=== PATIENT | male | born 1995 | race Caucasian/White ===

== ENCOUNTER 2018-01-26 16:49 | Outpatient (CLI) | payer SELFPAY ==
[2018-01-28 10:52] LABS: HBs Antibody, Quant <3.1 mIU/mL; Hepatitis B Surface Ab Negative
[2018-01-28 12:35] LABS: Varicella IgG Antibody Positive
[2018-01-28 12:44] LABS: Measles IgG Antibody Positive; Mumps Antibody IgG Positive; Rubella IgG Ab (UVM) Positive
[2018-01-28 14:44] LABS: TB Interpretation Negative (NEGAT)
== END 2018-01-26 17:09 ==
PROVIDERS: Visit Provider Nurse Practitioner Family
DX: Z02.1 Encounter for pre-employment examination (principal); Z01.84 Encounter for antibody response examination
CPT/HCPCS: 36415; 86706; 86787; 86480; 86735; 86762; 86765

== ENCOUNTER 2018-08-19 18:15 | Emergency (ER) | payer SELFPAY ==
[2018-08-19 18:20] VITALS: BP 158/91; PULSE 84; RESP 14; TEMP 36.4; O2SAT 96
--- NOTE | 2018-08-19 18:43 | W.ED.GENAD ---
Discharge Plan Disposition Patient Disposition: HOME Condition: Improving Discharge Details Chief Complaint: Nk/Back Pain Clinical Impression: Acute left-sided thoracic back pain Primary Care Provider: None,None ED Provider: Dylan Fuentes Home Meds and New Rx's Prescriptions: New methocarbamol 500 mg tablet 500 - 1,000 mg PO Q6H PRN (Reason: Back pain or spasm) Qty: 14 RF: 0 Continued acetaminophen [Tylenol] 325 MG tablet 325 mg PO PRN PRNRF: 0 melatonin 5 MG capsule 10 mg PO HS RF: 0 Ibuprofen [Ibuprofen Ib] 200 MG Tablet 600 mg PO PRN PRNRF: 0 Discharge Instructions Instructions: Back Pain (ED) Additional Instructions: Remove Lidoderm patch in 12 hours. Take methocarbamol, as prescribed, as needed for pain. As we discussed, please return if you develop a fever, change to urine, worsening pain, or any other acute concerns. Medical Decision Making 23-year-old male presents with left-sided thoracic pain over 3 days time. It began after lifting his girlfriend while swimming. He has not had any other injury. No rash, no fever, no cough. No leg pain or swelling. No recent travel or prolonged immobilization. He is afebrile, pulse is 84, oxygenation 96%, mild hypertension at 158/91 with pain. He is tender along the paraspinous thoracic musculature with spasm underlying it. This is the most likely etiology. Discussed with him that I cannot rule out underlying pathology such as kidney stone, bowel obstruction, or other pathologies. He states he wishes to avoid blood draw and imaging at this time. Therefore, we he will administer a Lidoderm patch, which he will remove in 12 hours, we will trial methocarbamol for discomfort. He understands the need to return to the pain worsen, rash develop, fever develop, change to urine, or any other acute concerns. HPI General Mode of arrival: ambulatory. Date/Time Provider Initiated Documentation: 08/19/18 18:17. Limitations to Documentation: no limitations. Information obtained by: patient. History of Present Illness 23 year old M presents to the emergency department with the chief complaint of Left thoracic pain x3 days, described as moderate, Quality is described as dull and constant, and is localized to the back and left. Patient reports no radiation. Patient started experiencing this day(s) and it has been intermittent. other things that improve symptom(s), (Standing up) Other factors that worsen symptoms (Sitting down) . Patient notes no other symptoms. and other (No change to urine, no fall, no trauma, no fever). Patient did receive the following treatments prior to arrival, none Related Data Home Medications Medication Instructions Recorded Confirmed acetaminophen [Tylenol] 325 mg PO PRN PRN 09/01/12 08/19/18 Ibuprofen [Ibuprofen Ib] 600 mg PO PRN PRN 03/13/17 08/19/18 melatonin 10 mg PO HS 03/13/17 08/19/18 methocarbamol 500 - 1,000 mg PO Q6H PRN #14 tab 08/19/18 Previous Rx's Medication Instructions Recorded methocarbamol 500 - 1,000 mg PO Q6H PRN #14 tab 08/19/18 Allergies Allergy/AdvReac Type Severity Reaction Status Date / Time pollen Allergy Mild sneezes Uncoded 08/19/18 18:22 General Stated Complaint: Nk/Back Pain SHAHIDA: 4 Review of Systems Review of Systems Began after lifting girlfriend while swimming. No rash, no fever, no chest pain, no cough. 8 systems reviewed and otherwise - [facility] Social History Smoking/Tobacco Use Status: Current every day Tobacco Type: cigarettes Drug use: Current Sobriety Do you feel safe at home: Yes Do you feel safe in your relationship?: Yes Exam Narrative Exam Narrative: GEN: awake, alert, oriented 3. Pleasant, well groomed, interactive. HEAD: Normocephalic, atraumatic ENT: Mucous membranes moist, oropharynx unremarkable, External ear exam unremarkable EYES: PERRL, EOMI NECK: Full ROM, no CLARENCE, no menigismus CHEST/RESP: Nontender, clear to auscultation bilateral, no wheeze/rhonchi/rales CARDIOVASCULAR: RRR, no murmur, rub yaneth. 2+ Rad pulse bilateral ABDOMEN: Soft, nontender, no mass. +Bowel sounds Back: Left paraspinous thoracic musculature is tender and with underlying spasm. No rash appreciated EXT: Full ROM, no edema, no rash Neuro: Grossly normal neurologic exam, conversant, interactive. Psych: Speech fluent, thoughts congruent, affect normal Course Vital Signs Temperature 36.4 C L 08/19/18 18:20 Pulse 84 08/19/18 18:20 Respiratory Rate 14 08/19/18 18:20 Blood Pressure 158/91 H 08/19/18 18:20 Pulse Oximetry 96 08/19/18 18:20 Temperature 36.4 C L 08/19/18 18:20 Temperature Source Temporal Artery Scan 08/19/18 18:20 Pulse 84 08/19/18 18:20 Respiratory Rate 14 08/19/18 18:20 Respiratory Effort Non-Labored 08/19/18 18:21 Blood Pressure 158/91 H 08/19/18 18:20 Blood Pressure Position Sitting 08/19/18 18:20 Pulse Oximetry 96 08/19/18 18:20 Oxygen Delivery Method Room Air 08/19/18 18:20 Oxygen Flow Rate 0 08/19/18 18:20 Pain Level 8 08/19/18 18:20
--- NOTE | 2018-08-19 18:47 | ED.GENADUL_ITS ---
Discharge Plan Disposition Patient Disposition: HOME Condition: Improving Discharge Details Chief Complaint: Nk/Back Pain Clinical Impression: Acute left-sided thoracic back pain Primary Care Provider: None,None ED Provider: Dylan Fuentes Home Meds and New Rx's Prescriptions: New methocarbamol 500 mg tablet 500 - 1,000 mg PO Q6H PRN (Reason: Back pain or spasm) Qty: 14 RF: 0 Continued acetaminophen [Tylenol] 325 MG tablet 325 mg PO PRN PRNRF: 0 melatonin 5 MG capsule 10 mg PO HS RF: 0 Ibuprofen [Ibuprofen Ib] 200 MG Tablet 600 mg PO PRN PRNRF: 0 Discharge Instructions Instructions: Back Pain (ED) Additional Instructions: Remove Lidoderm patch in 12 hours. Take methocarbamol, as prescribed, as needed for pain. As we discussed, please return if you develop a fever, change to urine, worsening pain, or any other acute concerns. Medical Decision Making 23-year-old male presents with left-sided thoracic pain over 3 days time. It began after lifting his girlfriend while swimming. He has not had any other injury. No rash, no fever, no cough. No leg pain or swelling. No recent travel or prolonged immobilization. He is afebrile, pulse is 84, oxygenation 96%, mild hypertension at 158/91 with pain. He is tender along the paraspinous thoracic musculature with spasm underlying it. This is the most likely etiology. Discussed with him that I cannot rule out underlying pathology such as kidney stone, bowel obstruction, or other pathologies. He states he wishes to avoid blood draw and imaging at this time. Therefore, we he will administer a Lidoderm patch, which he will remove in 12 hours, we will trial methocarbamol for discomfort. He understands the need to return to the pain worsen, rash develop, fever develop, change to urine, or any other acute concerns. HPI General Mode of arrival: ambulatory . Date/Time Provider Initiated Documentation: 08/19/18 18:17 . Limitations to Documentation: no limitations . Information obtained by: patient . History of Present Illness 23 year old M presents to the emergency department with the chief complaint of Left thoracic pain x3 days, described as moderate, Quality is described as dull and constant, and is localized to the back and left. Patient reports no radiation. Patient started experiencing this day(s) and it has been intermittent. other things that improve symptom(s), (Standing up) Other factors that worsen symptoms (Sitting down) . Patient notes no other symptoms. and other (No change to urine, no fall, no trauma, no fever). Patient did receive the following treatments prior to arrival, none Related Data Home Medications Medication Instructions Recorded Confirmed acetaminophen [Tylenol] 325 mg PO PRN PRN 09/01/12 08/19/18 Ibuprofen [Ibuprofen Ib] 600 mg PO PRN PRN 03/13/17 08/19/18 melatonin 10 mg PO HS 03/13/17 08/19/18 methocarbamol 500 - 1,000 mg PO Q6H PRN #14 tab 08/19/18 Previous Rx's Medication Instructions Recorded methocarbamol 500 - 1,000 mg PO Q6H PRN #14 tab 08/19/18 Allergies Allergy/AdvReac Type Severity Reaction Status Date / Time pollen Allergy Mild sneezes Uncoded 08/19/18 18:22 General Stated Complaint: Nk/Back Pain SHAHIDA: 4 Review of Systems Review of Systems Began after lifting girlfriend while swimming. No rash, no fever, no chest pain, no cough. 8 systems reviewed and otherwise - [facility] Social History Smoking/Tobacco Use Status: Current every day Tobacco Type: cigarettes Drug use: Current Sobriety Do you feel safe at home: Yes Do you feel safe in your relationship?: Yes Exam Narrative Exam Narrative: GEN: awake, alert, oriented 3. Pleasant, well groomed, interactive. HEAD: Normocephalic, atraumatic ENT: Mucous membranes moist, oropharynx unremarkable, External ear exam unremarkable EYES: PERRL, EOMI NECK: Full ROM, no CLARENCE, no menigismus CHEST/RESP: Nontender, clear to auscultation bilateral, no wheeze/rhonchi/rales CARDIOVASCULAR: RRR, no murmur, rub yaneth. 2+ Rad pulse bilateral ABDOMEN: Soft, nontender, no mass. +Bowel sounds Back: Left paraspinous thoracic musculature is tender and with underlying spasm. No rash appreciated EXT: Full ROM, no edema, no rash Neuro: Grossly normal neurologic exam, conversant, interactive. Psych: Speech fluent, thoughts congruent, affect normal Course Vital Signs Temperature 36.4 C L 08/19/18 18:20 Pulse 84 08/19/18 18:20 Respiratory Rate 14 08/19/18 18:20 Blood Pressure 158/91 H 08/19/18 18:20 Pulse Oximetry 96 08/19/18 18:20 Temperature 36.4 C L 08/19/18 18:20 Temperature Source Temporal Artery Scan 08/19/18 18:20 Pulse 84 08/19/18 18:20 Respiratory Rate 14 08/19/18 18:20 Respiratory Effort Non-Labored 08/19/18 18:21 Blood Pressure 158/91 H 08/19/18 18:20 Blood Pressure Position Sitting 08/19/18 18:20 Pulse Oximetry 96 08/19/18 18:20 Oxygen Delivery Method Room Air 08/19/18 18:20 Oxygen Flow Rate 0 08/19/18 18:20 Pain Level 8 08/19/18 18:20
[2018-08-19] MEDS: Lidocaine 5% Patch 1 PATCH TP (18:59)
[2018-08-19] MEDS: Methocarbamol 500 MG TAB 1000 MG PO (19:00)
[2018-08-19] MEDS: Methocarbamol 500 MG TAB 2000 MG PO (19:02)
== END 2018-08-19 19:11 | disposition home or self-care (01) ==
PROVIDERS: Emergency Provider Emergency Medicine
DX: M54.6 Pain in thoracic spine (principal); X50.9XXA Other and unspecified overexertion or strenuous movements or postures, initial encounter; I10 Essential (primary) hypertension
CPT/HCPCS: 99283

== ENCOUNTER 2018-11-22 14:18 | Emergency (ER) | payer SELFPAY ==
[2018-11-22 14:21] VITALS: BP 120/83; PULSE 81; RESP 16; TEMP 36.7; O2SAT 97
[2018-11-22 14:27] VITALS: RESP 16
--- NOTE | 2018-11-22 14:31 | ED.GENADUL_ITS ---
Discharge Plan Disposition Patient Disposition: HOME Condition: Good Discharge Details Chief Complaint: Chest Pain Clinical Impression: Atypical chest pain, Stress Primary Care Provider: None,None ED Provider: Jacquie Casillas Home Meds and New Rx's Prescriptions: Continued acetaminophen [Tylenol] 325 MG tablet 325 mg PO PRN PRNRF: 0 Ibuprofen [Ibuprofen Ib] 200 MG Tablet 600 mg PO PRN PRNRF: 0 Discharge Instructions Instructions: Stress (ED) Additional Instructions: Encourage hydration. Your labs and x-ray are reassuring today. We are working on establishing a primary care for you, if you do not hear from us by Friday, please call the care coordinators. Please recheck to [facility] regarding counseling. If you have any increased anxiety or worry feel free to call them at any time or the [place] helpline. [phone]. Please call [facility] [employer] tomorrow to discuss any financial assistance that may be available to you. If you develop any new or worsening symptoms please seek care urgently once again. Medical Decision Making Please see HPI. Patient is a 23-year-old male presents today with chief complaint of chest pain x1 week worse with immobilization. Reports that pain is worse during times of increased stress. Denies any shortness of breath. No cough. He is an active smoker. Patient does not have a primary care. He reports that he is currently homeless and is running out of couches to stay on. However, he has been hesitant to reach out for housing assistance as he has a large dog and will not accept housing if the dog is not able to stay with him. Patient denies any palpitations. On exam, patient appears anxious. He does not appear uncomfortable. Reports he is not having any pain currently despite his immobilized state which typically exacerbates his issues. Normal cardiac exam. Peripheral pulses are intact. Lungs are clear bilaterally. No swelling noted in lower extremities, calves are soft and nontender, no evidence of DVT. Vital signs are within normal limits. Patient's PERC negative. Do not appreciate any murmur on exam. He denies any IV drug use. However, with his history of murmur and concern of fever over the recent setting, endocarditis is on the differential. Will obtain chest x-ray, EKG and baseline labs as well as blood cultures. I do find this unlikely as the fevers have not persisted, patient does not have a current murmur and is not an IV drug user. Discussed this plan with the patient who is in agreement. EKG was reviewed by Dr. Medina. Patient has normal sinus rhythm with a rate of 73. No acute ischemic changes or abnormalities noted. Chest x-ray was reviewed by radiologist: FINDINGS: Heart is not enlarged. The lungs are clear. No pleural effusion seen. IMPRESSION: No evidence of acute process. Labs reviewed. No leukocytosis. Normal lactate. Troponin is not elevated. Normal electrolytes. Discussed these findings with the patient and his significant other. As the symptoms seem to generate around times of being sedentary and self reflection, this is likely stress-induced discomfort. He does not have a primary care and I would like for him to have follow-up, asked her out of school hours care worker help facilitate with this. As the patient is actively homeless and struggling financially, I have asked the out of school hours care worker, and check with the patient. He is not suicidal or homicidal but would like the care of a counselor. I have given him contact information for [facility] human services. He was given strict return precautions. All of his questions and concerns were addressed and he is in agreement with this plan. HPI General Mode of arrival: ambulatory . Date/Time Provider Initiated Documentation: 11/22/18 14:30 . Limitations to Documentation: no limitations . Information obtained by: patient and family (Significant other) . HPI Narrative: Patient is a 23-year-old male, currently under a large amount of stress secondary to lifestyle situations, presenting today with chief complaint of chest pain. Reports the pain has been intermittent, only at times of rest, over the past week. States that he did have a low-grade fever with a T-max of 100 ?F 3 days ago. Has not had any fever since that time. Denies any URI symptoms. Is also endorsing some left-sided shoulder pain that is worse with movement. Reports that he has a very repetitive job and cannot can occasionally have some tingling in the left hand. Currently not having the symptoms. Denies any recent travel. Denies any GI upset. No recent rash. He does report that he has a history of murmur from a child but believes that this was resolved. Unclear etiology of the murmur. Denies any exertional chest pain. No shortness of breath. Pain is not worse with deep breathing or activities. Related Data Home Medications Medication Instructions Recorded Confirmed acetaminophen [Tylenol] 325 mg PO PRN PRN 09/01/12 11/22/18 Ibuprofen [Ibuprofen Ib] 600 mg PO PRN PRN 03/13/17 11/22/18 Allergies Allergy/AdvReac Type Severity Reaction Status Date / Time pollen Allergy Mild sneezes Uncoded 08/19/18 18:22 General Stated Complaint: Chest Pain SHAHIDA: 3 Review of Systems Constitutional Constitutional: Reports as per HPI, Denies chills, Denies fever(s), Denies headache(s), Denies lethargy and Denies poor appetite Eyes Eyes: Denies change in vision ENT Ears, Nose, Mouth, and Throat: Denies dizziness and Denies headache(s) Cardiovascular Cardiovascular: Reports as per HPI, Denies dyspnea and Denies dyspnea on exertion Respiratory Respiratory: Reports as per HPI, Denies chest congestion, Denies cough, Denies pain on inspiration, Denies pain with cough, Denies dyspnea, Denies dyspnea on exertion and Denies wheezing Gastrointestinal Gastrointestinal: Reports as per HPI, Denies abdominal pain, Denies diarrhea, Denies nausea and Denies vomiting Genitourinary Genitourinary: Denies system reviewed and no additional complaints, except as docu (denies change in urinary habits) Musculoskeletal Musculoskeletal: Reports as per HPI and Denies back pain Integumentary/Breasts Skin/Breast: Reports as per HPI and Denies rash Neurologic Neurologic: Reports as per HPI, Denies dizziness and Denies headache(s) Allergic/Immunologic Allergic/Immunologic: Denies wheezing [facility] Social History Smoking/Tobacco Use Status: Current every day Tobacco Type: cigarettes Drug use: Current Sobriety Do you feel safe at home: Yes Do you feel safe in your relationship?: Yes Exam Const General: cooperative, healthy appearing, comfortable, no acute distress and well developed Nutritional Appearance: average body habitus and well nourished Orientation: alert, awake and oriented x3 HENMT Head: normal to inspection Ears: hearing grossly normal bilaterally Mouth: moist mucous membranes Chest Chest: normal inspection of the chest, normal palpation of entire chest wall and no crepitus Resp Effort & Inspection: normal respiratory effort, able to speak in complete sentences and no respiratory distress Auscultation: clear to auscultation bilaterally, no rales, no rhonchi and no wheezes Cardio Rate: regular rate Rhythm: regular rhythm Heart Sounds: S1 normal and S2 normal GI Inspection: normal to inspection, no edema and non-distended Palpation: soft, no hepatosplenomegaly, not firm, no guarding, not rigid and nontender Auscultation: normal bowel sounds Back/Spine/Pelvis Back: no CVA tenderness Thoracic/Lumbar Spine: thoracic and lumbar spine normal to inspection Skin General skin exam: no rashes or lesions noted Trauma: no lacerations or abrasions Neuro General: alert, awake and oriented x3 Cognition: normal cognition Speech: speech normal Gait: normal gait Extrem General: normal to inspection, normal capillary refill, no pedal edema, no calf tenderness and normal gait Psych Appearance: grossly normal and well kempt Mental Status: mental status grossly normal Speech and Movement: speech and movement normal Course Vital Signs Vital signs: Vital Signs Temperature 36.7 C 11/22/18 14:21 Pulse 81 11/22/18 14:21 Respiratory Rate 16 11/22/18 14:21 Blood Pressure 120/83 11/22/18 14:21 Pulse Oximetry 97 11/22/18 14:21 Temperature 36.7 C 11/22/18 14:21 Temperature Source Temporal Artery Scan 11/22/18 14:21 Pulse 81 11/22/18 14:21 Respiratory Rate 16 11/22/18 14:21 Blood Pressure 120/83 11/22/18 14:21 Blood Pressure Position Sitting 11/22/18 14:21 Pulse Oximetry 97 11/22/18 14:21 Oxygen Delivery Method Room Air 11/22/18 14:21 Oxygen Flow Rate 0 11/22/18 14:21 Pain Level 6 11/22/18 14:21
--- NOTE | 2018-11-22 14:45 | DI.RAD_ITS ---
EXAM: XR CHEST 2V PA LATERAL INDICATION: CP. COMPARISON: LEFT RIBS TO INCLUDE CXR from 01/09/2012 TECHNIQUE: 2D digital imaging was performed. FINDINGS: Heart is not enlarged. The lungs are clear. No pleural effusion seen. IMPRESSION: No evidence of acute process.
[2018-11-22] MEDS: Normal Saline Flush 10 ML SYR IVP (15:08)
[2018-11-22] MEDS: Normal Saline 1,000 ML 1000 ML IV (15:08)
[2018-11-22 15:10] LABS: Lactate 1.3 mmol/L (0.6-1.4)
[2018-11-22 15:19] LABS: Abs Immature Grans 0.01 k/cumm (0.0-0.09); HCT 47.8 % (40.0-50.0); Mean Corp. HGB Concentration 35.6 g/dL (32.0-36.0); Mean Corpuscular Hemoglobin 29.5 pg (27.0-33.0); Mean Corpuscular Volume 82.8 fL (80-95); Mean Platelet Volume 10.2 fL (8.0-11.0); Platelet Count 242 x1000/uL (130-400); RBC 5.77 m/cumm (4.50-6.00); RBC Distribution Width 12.7 % (11.8-14.1); White Blood Cell Count 6.67 k/cumm (4.4-10.8)
[2018-11-22] MEDS: Nicotine 21 MG/24 HR PATCH TD (15:25)
[2018-11-22 15:33] LABS: ALT 20 U/L (16-63); AST 14 U/L (15-37); Albumin 3.9 g/dL (3.4-5.0); Alkaline Phosphatase 75 U/L (46-116); Anion Gap 9.4 mmol/L (3-11); BUN 14 mg/dL (7-18); Bilirubin, Total 1.2 mg/dL (0.2-1.0); CO2 28.6 mmol/L (21.0-32.0); CREATININE 0.93 mg/dL (0.70-1.30); Calcium 8.9 mg/dL (8.5-10.1); Chloride 104 mmol/L (98-107); Glucose 103 mg/dL (70-100); Magnesium 1.9 mg/dL (1.8-2.4); Potassium 3.9 mmol/L (3.5-5.1); Sodium 142 mmol/L (136-145); Total Protein 7.8 g/dL (6.4-8.2)
[2018-11-22 15:35] LABS: Troponin I < 0.05 ng/mL (0.00-0.06)
[2018-11-22 15:47] LABS: Absolute Basophil Count 0.07 k/cumm (0.0-0.2); Absolute Eosinophil Count 0.07 k/cumm (0.0-0.7); Absolute Lymphocyte Count 1.93 k/cumm (1.2-3.4); Atypical Lymphocytes % 8
[2018-11-22 15:48] LABS: Diff Comment Manual Differential; RBC Morphology Normal
[2018-11-22 17:10] VITALS: BP 119/80; PULSE 64; RESP 16; O2SAT 95
== END 2018-11-22 17:18 | disposition home or self-care (01) ==
LOC: ER 16:19
PROVIDERS: Emergency Provider Physician Assistant
DX: R07.89 Other chest pain (principal); F43.8 Other reactions to severe stress; Z59.0 Homelessness
CPT/HCPCS: 36410; 36415; 80053; 87040; 96360; 99283; 71046; 83605; 83735; 84484; 85025

== ENCOUNTER 2019-06-22 21:22 | Emergency (ER) | payer SELFPAY ==
--- NOTE | 2019-06-22 21:30 | DI.RAD_ITS ---
EXAM: XR WRIST LT COMPLETE CLINICAL HISTORY: pain, injury TECHNIQUE: COMPARISON: No exams were available for comparison FINDINGS: Three views were obtained. There is normal carpal alignment. No fracture seen. IMPRESSION:
--- NOTE | 2019-06-22 21:30 | DI.RAD_ITS ---
EXAM: XR FOREARM LT CLINICAL HISTORY: pain, injury TECHNIQUE: COMPARISON: No exams were available for comparison FINDINGS: Two views were obtained. No fracture seen. IMPRESSION:
[2019-06-22 21:38] VITALS: BP 149/88; PULSE 90; RESP 16; TEMP 37.1; O2SAT 98
--- NOTE | 2019-06-22 21:40 | ED.GENADUL_ITS ---
Discharge Plan Disposition Patient Disposition: HOME Condition: Stable Discharge Details Chief Complaint: Orthopedic Clinical Impression: Contusion of left forearm, Sprain of wrist, left Primary Care Provider: None,None ED Provider: Dona Stevens Home Meds and New Rx's Prescriptions: No Action acetaminophen [Tylenol] 325 MG tablet 325 mg PO PRN PRNRF: 0 Ibuprofen [Ibuprofen Ib] 200 MG Tablet 600 mg PO PRN PRNRF: 0 Discharge Instructions Instructions: Contusion in Adults (ED), Wrist Sprain (ED) Additional Instructions: Rest. Activities as tolerated. Wear splint for one week Elevate injury to prevent swelling. Ice to the area of discomfort for 15 min. 3-5 times daily. Motrin every 8 hours with food or Tylenol every 6 hours for soreness if needed over the counter for comfort. Followup with orthopedic doctor as discussed if not improving in one week. Return for any worsening or concerns sooner if needed. Referrals: Boris Thompson MD [ [facility] STAFF PHYSICIAN] - Discharge Data Discharge Date/Time-TO BE ENTERED AT DEPARTURE: 06/22/19 23:10 Medical Decision Making 24-year-old patient who is arm but closed in a car door x2 at 130 this morning complains of persistent pain presents with no other sites of injury or concern. Patient does have focal swelling of the left forearm with tenderness associated at this site. Nothing to indicate compartment syndrome at this time. Patient does have mild associated wrist pain with palpation. No obvious injury through the hand. Intact to sharp and dull sensation. No obvious focal weakness on exam. Distal neurovascularly intact, pulses maintained. No open wounds. We will plan to obtain x-ray. Patient did take Tylenol 1500 mg 4 hours prior to arrival. Will offer ibuprofen, patient consents. Xray unremarkable for acute fracture. Discussed x-ray results with patient. Discussed rice. Discussed pointing devices. Patient feels comfortable with universal wrist splint as plan of care for discharge. If not improving recommend follow-up with orthopedics in 1 week. Patient reports his understanding. Nothing to indicate neuromuscular emergency at this time. Patient reports his understanding of plan of care. The patient was stable and requested discharge. Prior to discharge, my usual and customary return precautions were reviewed with the patient - this included follow-up instructions and reasons to return to the Emergency Department if conditions worsens, does not improve as expected, or other new concerns arise. HPI General Date/Time Provider Initiated Documentation: 06/22/19 21:25 . HPI Narrative: This is a 24-year-old patient presenting to the emergency room this evening for complaints of left forearm pain. Patient reports he had his arm crushed in a car door twice overnight at approximately 1:30 in the morning. Patient denies obvious numbness, tingling or weakness. Pain persist through the day. Patient concerned the possibility of fracture. Patient denies any other sites of pain or injuries. Patient does report pain with attempts of range of motion of the left arm. No open wounds. Patient denies any safety concern or need for police involvement. Related Data Home Medications Medication Instructions Recorded Confirmed acetaminophen [Tylenol] 325 mg PO PRN PRN 09/01/12 06/22/19 Ibuprofen [Ibuprofen Ib] 600 mg PO PRN PRN 03/13/17 06/22/19 Allergies Allergy/AdvReac Type Severity Reaction Status Date / Time pollen Allergy Mild sneezes Uncoded 06/22/19 21:42 General Stated Complaint: Orthopedic SHAHIDA: 4 Review of Systems All systems reviewed & are unremarkable except as noted in HPI and below ENT Ears, Nose, Mouth, and Throat: Denies neck pain Musculoskeletal Musculoskeletal: Denies deformity, Denies neck pain, Denies numbness and Denies tingling Integumentary/Breasts Skin/Breast: Denies wounds Neurologic Neurologic: Denies numbness, Denies tingling and Denies paresthesias [facility] Social History Smoking/Tobacco Use Status: Current every day Tobacco Type: cigarettes Alcohol Intake: current Drug use: Daily Substance use type: marijuana Do you feel safe at home: Yes Do you feel safe in your relationship?: Yes Exam Narrative Exam Narrative: CONST: Healthy appearing patient, in no acute distress. Well hydrated. Alert and oriented. NECK: Normal visual inspection. FROM. Trachea midline. No Midline tenderness. MUSCULOSKELETAL: Normal Gait. Left arm: No clavicle pain with palpation, shoulder pain with palpation or humeral pain with palpation. No focal elbow pain with palpation. Supination pronation intact at elbow. No obvious swelling of the elbow. Patient has mid forearm tenderness with palpation. Mild swelling present. No open wounds at this site. Patient does have mild wrist pain with palpation both radial and ulnar. Pain associated with flexion extension of the wrist. Able to supinate and pronate. No significant bony pain with palpation through the hand. Director Business Development strength intact. Patient intact through all digits and hand and forearm to sharp and dull. No focal weakness of the hand on exam. Pulses intact. SKIN: Normal. Dry. No rashes. NEURO: Alert and awake. Speech clear. PSYCH: Normal affect. Cooperative. Course Vital Signs Vital signs: Vital Signs Temperature 37.1 C 06/22/19 21:38 Pulse 90 06/22/19 21:38 Respiratory Rate 16 06/22/19 21:38 Blood Pressure 149/88 H 06/22/19 21:38 Pulse Oximetry 98 06/22/19 21:38 Temperature 37.1 C 06/22/19 21:38 Temperature Source Tympanic 06/22/19 21:38 Pulse 90 06/22/19 21:38 Respiratory Rate 16 06/22/19 21:38 Blood Pressure 149/88 H 06/22/19 21:38 Blood Pressure Position Sitting 06/22/19 21:38 Pulse Oximetry 98 06/22/19 21:38 Oxygen Delivery Method Room Air 06/22/19 21:38 Oxygen Flow Rate 0 06/22/19 21:38 Pain Level 7 06/22/19 21:38
[2019-06-22] MEDS: Ibuprofen 600 MG TAB PO (21:58)
--- NOTE | 2019-06-22 22:02 | DI.VRAD_ITS ---
PROCEDURE INFORMATION: Exam: XR Left Wrist Exam date and time: 06/22/2019 9:45 PM Age: 24 years old Clinical indication: Other: Injury pain TECHNIQUE: Imaging protocol: XR Left wrist. Views: 3 or more views. COMPARISON: No relevant prior studies available. FINDINGS: Bones/joints: No acute fracture. No dislocation. Soft tissues: Unremarkable. IMPRESSION: No acute osseous abnormality. Dictated and Authenticated by: Sanket Bansal MD. Ordering:CARMELINA Carcamo MD
--- NOTE | 2019-06-22 22:02 | DI.VRAD_ITS ---
PROCEDURE INFORMATION: Exam: XR Left Forearm Exam date and time: 06/22/2019 9:45 PM Age: 24 years old Clinical indication: Other: Injury , pain mid and distal lt forearm TECHNIQUE: Imaging protocol: XR Left forearm. Views: 2 views. COMPARISON: No relevant prior studies available. FINDINGS: Bones/joints: No acute fracture. No dislocation. Soft tissues: Mild swelling. IMPRESSION: No acute osseous abnormality. Dictated and Authenticated by: Sanket Bansal MD. Ordering:CARMELINA Carcamo MD
[2019-06-22 23:01] VITALS: BP 149/88; PULSE 90; RESP 16; TEMP 37.1; O2SAT 98
== END 2019-06-22 23:10 | disposition home or self-care (01) ==
PROVIDERS: Emergency Provider Physician Assistant
DX: S50.12XA Contusion of left forearm, initial encounter (principal); S63.502A Unspecified sprain of left wrist, initial encounter; W23.0XXA Caught, crushed, jammed, or pinched between moving objects, initial encounter
CPT/HCPCS: 29125; 99284; 73090; 73110; L3908

== ENCOUNTER 2019-12-12 00:38 | Emergency (ER) | payer SELFPAY ==
[2019-12-12] VITALS (8 sets, daily range): BP systolic 93–146; BP diastolic 54–83; PULSE 74–93; RESP 18–22; TEMP 37.1; O2SAT 92–97
--- NOTE | 2019-12-12 00:45 | DI.RAD_ITS ---
EXAM: XR SHOULDER LT COMPLETE 2+V CLINICAL HISTORY: left shoulder pain, suspect dislocation. TECHNIQUE: 2D digital imaging was performed. COMPARISON: No exams were available for comparison FINDINGS: Limited examination. BONES: No acute fracture is present. No bony destructive lesion is seen. JOINTS: Anterior shoulder dislocation. SOFT TISSUE: Normal. IMPRESSION: Anterior dislocation of the left shoulder. DATA REPOSITORY: RADIATION DOSE DELIVERED:
--- NOTE | 2019-12-12 00:45 | DI.RAD_ITS ---
EXAM: XR CHEST 2V PA LATERAL CLINICAL HISTORY: left chestpain after boxing, and L shoulder disloc TECHNIQUE: 2D digital imaging was performed. COMPARISON: CR XR CHEST 2V PA LATERAL from 11/22/2018 FINDINGS: MEDIASTINUM: Normal. HEART: Normal. PULMONARY VASCULATURE: Normal. LUNGS: Clear. PLEURAL SPACE: No pleural effusion or pneumothorax. BONE:Within normal limits for the patient's age. OTHER FINDINGS:There has been a reduction of the left shoulder dislocation since the prior x-ray of t he left shoulder. IMPRESSION: No acute pulmonary findings. DATA REPOSITORY: RADIATION DOSE DELIVERED:
--- NOTE | 2019-12-12 00:53 | ED.GENADUL_ITS ---
Discharge Plan Disposition Patient Disposition: HOME Condition: Good Discharge Details Clinical Impression: Closed dislocation of left shoulder Primary Care Provider: None,None ED Provider: Shaquille Allred Home Meds and New Rx's Prescriptions: Continued acetaminophen [Tylenol] 325 MG tablet 325 mg PO PRN PRNRF: 0 Ibuprofen [Ibuprofen Ib] 200 MG Tablet 600 mg PO PRN PRNRF: 0 Discharge Instructions Instructions: Shoulder Dislocation (ED) Additional Instructions: The shoulder was dislocated but has now been put back into place, however during your initial dislocation you likely caused notable trauma to the tendon ligaments and the joint space. We will have notable pain for the next 6 weeks at minimum as the bursa inflammation decreases slowly. Please take 1000 mg of Tylenol every 6 hours and 800 mg of ibuprofen. If your pain continues after this timeframe you will require further evaluation with an compliance review specialist . You may eventually need additional imaging of your shoulder. In regards to the numbness and tingling that you are feeling it is likely from strain on your brachial plexus and other nerves around the shoulder. These will likely return back to normal in time, I do recommend taking a B complex vitamin and massaging the area regularly to help in the healing. It is important to follow-up closely with the compliance review specialist for further evaluation. Please keep the sling on until you follow-up with the compliance review specialist. Make sure to move your shoulder in a full range of motion few times every day to prevent frozen shoulder syndrome. If you notice any worsening of your symptoms, or any new symptoms such as vomiting, diarrhea, fever, chills, shortness of breath, chest pain, numbness, weakness, or fainting , please return immediately to the emergency department for reevaluation. Please follow up with your primary care provider as soon as possible for reassessment and reevaluation. As always, it was a pleasure participating in your medical care today. Stand Alone Forms: Work Release Referrals: Dylan Raygoza MD [ [facility] STAFF PHYSICIAN] - Gary Lindsey MD [ [facility] STAFF PHYSICIAN] - Boris Thompson MD [ [facility] STAFF PHYSICIAN] - Discharge Data Discharge Date/Time-TO BE ENTERED AT DEPARTURE: 12/12/19 02:35 Medical Decision Making 24-year-old male with a past medical history of previous right shoulder dislocation who is right-hand dominant presents today for left shoulder pain. Patient states that he was boxing earlier today with some friends, and then during the boxing match his left chest and left shoulder were hit and he subsequently fell landing on his left shoulder. he did note immediate pain in his left shoulder, and numbness in his entire left arm, as well as the left anterior and axillary side of his chest. He denies any significant or severe chest pain, he is unable to move his left shoulder at all. He denies being hit in the head, back or any other place. He denies any loss of consciousness. He does admit to having 1 or 2 drinks this evening/twisted teas. He denies any other IV or illicit drug use or complaints at this time. Exam demonstrates notable deformity of the left shoulder, suspect dislocation, however the patient states that the pain is notably atypical compared to his previous dislocations for the right shoulder, though certainly does increase the concern for potential associated fracture. He has notable decrease in sensation over the forearm and hand, suspect potential injury to the brachial plexus secondary to the initial dislocation. We will get rapid x-rays, and plan to reduce. Of note the patient notably and unequivocally refused any IV and shots for sedation. He described a notable needle phobia. We did try to reassure, state that there would not be significant challenge or difficulty getting an IV or giving a shot for sedation however patient made it unequivocally clear that he would not be having any needles for this. I did offer oral Valium/benzos, he also refused this, stating that he does not do well with benzos. He does not feel [place] with benefit. With all these options being refused we will give Tylenol and Motrin. Patient has made it clear that he understands that there will be a significant amount of pain if he is not sedated, and after prolonged discussion he states that he would rather this rather than any needles. He states that he would prefer to remain on sedated for the procedure. 2:32 AM X-ray reveals confirmation of inferior dislocation. 1 attempt was performed for reduction of the left shoulder without sedation per the patient request, it was unsuccessful. Mostly because of the continued notable spasm in his arm which led to significant inhibition of reduction capability. After an extended amount of time in the help of the patient's significant other patient was willing to have an IV. IV was placed, conscious sedation was then performed with respiratory therapy at bedside utilizing propofol, using 100 mg total the patient was sedated well with no complications, he was reduced with single attempt and no complication. Repeat exam after reduction demonstrates complete resolution of numbness and tingling on the patient forearm, he still does have some mild decrease in sensation on the proximal lateral aspect of the arm of the shoulder as well as his mid axillary region. These locations are maintaining the same findings as to when they were tested prior to the reduction. There appears to be no worsening or improvement. Suspect mild nerve injury. Patient was placed in a sling with no complications. Patient is feeling much better. Patient will be discharged home with orthopedic follow-up, recommend for NSAID use and ice. Discussed red flags for which to return. I have extensively reviewed the treatment plan and discharge instructions with the patient and their family. I have addressed all patient concerns at this time. The patient and family was made aware of what symptoms to monitor for that would warrant a return to the emergency department. Discussed the plan with the patient and family, they demonstrate verbal understanding and agreement with our assessment and plan at this time. FINDINGS: Inferior left humeral head dislocation noted. No discrete fracture noted IMPRESSION: Inferior left humeral head dislocation. No definite acute fracture noted Thank you for allowing us to participate in the care of your patient. Dictated and Authenticated by: Rafal Inman MD 12/12/2019 1:15 AM Eastern Time ([place] & [place]) FINDINGS: Near anatomic positioning of the humeral head. Suspected Hill-Sachs deformity IMPRESSION: Near anatomic positioning of the left humeral head Suspected Hill-Sachs deformity in the left humeral head Thank you for allowing us to participate in the care of your patient. Dictated and Authenticated by: Rafal Inman MD 12/12/2019 2:25 AM Eastern Time ([place] & [place]) FINDINGS: Lungs: Mild chronic interstitial prominence. No consolidation. Pleural space: Unremarkable. No pleural effusion. No pneumothorax. Heart/Mediastinum: Unremarkable. No cardiomegaly. Bones/joints: Near anatomic positioning of the left humeral head IMPRESSION: No acute findings. Near anatomic positioning of the left humeral head Thank you for allowing us to participate in the care of your patient. Dictated and Authenticated by: Rafal Inman MD 12/12/2019 2:25 AM Eastern Time ([place] & [place]) HPI General Date/Time Provider Initiated Documentation: 12/12/19 00:46 . HPI Narrative: 24-year-old male with a past medical history of previous right shoulder dislocation who is right-hand dominant presents today for left shoulder pain. Patient states that he was boxing earlier today with some friends, and then during the boxing match his left chest and left shoulder were hit. He did note immediate pain in his left shoulder, and numbness in his entire left arm, as well as the left anterior side of his chest. He denies any significant or severe chest pain, he is unable to move his left shoulder at all. He denies being hit in the head, back or any other place. He denies any loss of consciousness. He does admit to having 1 or 2 drinks this evening/twisted teas. He denies any other IV or illicit drug use or complaints at this time. Related Data Home Medications Medication Instructions Recorded Confirmed acetaminophen [Tylenol] 325 mg PO PRN PRN 09/01/12 06/22/19 Ibuprofen [Ibuprofen Ib] 600 mg PO PRN PRN 03/13/17 06/22/19 Allergies Allergy/AdvReac Type Severity Reaction Status Date / Time pollen Allergy Mild sneezes Uncoded 06/22/19 21:42 General Stated Complaint: Orthopedic SHAHIDA: 3 Review of Systems All systems reviewed & are unremarkable except as noted in HPI and below PFS Social History Smoking/Tobacco Use Status: Current every day Tobacco Type: cigarettes Smoking risk assessment performed?: Yes Alcohol Intake: current Drug use: Daily Substance use type: marijuana Do you feel safe at home: Yes Do you feel safe in your relationship?: Yes Exam Narrative Exam Narrative: 1.Const: Well-nourished, Well-developed, appearing stated age 2.Eyes: PERRL, no conjunctival injection, and symmetrical lids. 3.ENT: Atraumatic external nose and ears. Moist MM. Neck: Symmetric, trachea midline, No thyromegaly. 4.CVS: +S1/S2, No murmurs or gallops. Peripheral pulses 2+ and equal in all extremities. Brisk capillary refill in all extremities. 5.RESP: Unlabored respiratory effort. Clear to auscultation bilaterally. No wheezes rales or rhonchi 6.GI: Soft, Nontender/Nondistended, No hepatosplenomegaly. No guarding or rebound. 7.MSK: Left shoulder: Left shoulder demonstrates notable deformity, suspicious for dislocation, tenderness over the AC joint and actual glenohumeral shoulder joint. Notable decrease in sensation appears to be present from roughly the elbow distally over the distribution of the musculocutaneous nerve, radial nerve, median nerve ulnar nerve and medial cutaneous nerve of the forearm. Two- point discrimination also appears to be limited in comparison to the right. 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 Sensation appears to be more improved on the proximal arm over the humerus, but does still appear to be limited over the distribution of the axillary nerve as well, as well as decreased sensation in the axilla of the armpit as well. No tenderness on palpation of the chest, no subcutaneous air. Radial pulse +2 bilaterally. Difficulty with flexion and extension at the elbow secondary to pain in the shoulder. 8.Skin: Warm, Dry. No rashes or lesions. 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 Please see musculoskeletal 10.Psych: (AAO) x3. Appropriate mood and affect Course Vital Signs Vital signs: Vital Signs Temperature 37.1 C 12/12/19 00:42 Pulse 93 H 12/12/19 00:42 Respiratory Rate 20 12/12/19 00:42 Blood Pressure 146/83 H 12/12/19 00:42 Pulse Oximetry 96 12/12/19 00:42 Temperature 37.1 C 12/12/19 00:42 Temperature Source Tympanic 12/12/19 00:42 Pulse 93 H 12/12/19 00:42 Respiratory Rate 20 12/12/19 00:42 Respiratory Effort 12/12/19 00:45 Blood Pressure 146/83 H 12/12/19 00:42 Pulse Oximetry 96 12/12/19 00:42 Oxygen Delivery Method Room Air 12/12/19 00:42 Oxygen Flow Rate 0 12/12/19 00:42 Pain Level 10 12/12/19 00:42 Procedures Orthopedic Joint Reduction Joint #1: Time Out Performed: Yes Side: left Joint Reduction Location: shoulder Analgesia: procedural sedation Shoulder Technique Used (if applicable): traction/counter-traction and Milch Post-reduction neuro exam: other (continued unchanged tingling/numbness) Post-reduction vascular: intact Post Reduction X-Ray Obtained: Yes Post Reduction X-Ray Results: reduced Splint Applied: Yes Patient Tolerated Procedure: well
[2019-12-12] MEDS: Ibuprofen 800 MG TAB PO (00:58)
[2019-12-12] MEDS: Acetaminophen 500 MG TAB 1000 MG PO (00:58)
--- NOTE | 2019-12-12 01:16 | DI.VRAD_ITS ---
PROCEDURE INFORMATION: Exam: XR Left Shoulder Exam date and time: 12/12/2019 12:53 AM Age: 24 years old Clinical indication: Other: Hit in left shoulder, suspect dislocation TECHNIQUE: Imaging protocol: XR Left shoulder. Views: 2 or more views. COMPARISON: No relevant prior studies available. FINDINGS: Inferior left humeral head dislocation noted. No discrete fracture noted IMPRESSION: Inferior left humeral head dislocation. No definite acute fracture noted Dictated and Authenticated by: Rafal Inman MD. Ordering:BARBRA Corbin MD
--- NOTE | 2019-12-12 01:30 | DI.RAD_ITS ---
EXAM: XR SHOULDER LT COMP POST REDUC CLINICAL HISTORY: post reduction. TECHNIQUE: 2D digital imaging was performed. COMPARISON: CR,XR XR SHOULDER LT COMPLETE 2+V from 12/12/2019 FINDINGS: BONES: No acute fracture is present. No bony destructive lesion is seen. JOINTS: Near anatomic realignment of the shoulder is noted. There is mild superior subluxation of th e humeral head which may reflect rotator cuff tear. SOFT TISSUE: Normal. IMPRESSION: Near anatomic realignment of the shoulder is noted. Please see the above discussion for complete det ails. MRI may be obtained for further evaluation. DATA REPOSITORY: RADIATION DOSE DELIVERED:
--- NOTE | 2019-12-12 02:27 | DI.VRAD_ITS ---
Addendum created by Rafal Inman MD on 12/12/2019 2:36:57 AM EST: Mild superior subluxation of the humeral head on the scapular view raising possibility of underlying rotator cuff tear. MRI could be obtained for further evaluation as clinically indicated Initial report created on 12/12/2019 2:25:47 AM EST: PROCEDURE INFORMATION: Exam: XR Left Shoulder Exam date and time: 12/12/2019 1:45 AM Age: 24 years old Clinical indication: Other: Post reduction TECHNIQUE: Imaging protocol: XR Left shoulder. Views: 2 or more views. COMPARISON: CR XR SHOULDER LT COMPLETE 2+V 12/12/2019 1:02 AM FINDINGS: Near anatomic positioning of the humeral head. Suspected Hill-Sachs deformity IMPRESSION: Near anatomic positioning of the left humeral head Suspected Hill-Sachs deformity in the left humeral head Dictated and Authenticated by: Rafal Inman MD. Ordering:BARBRA Corbin MD
--- NOTE | 2019-12-12 02:27 | DI.VRAD_ITS ---
PROCEDURE INFORMATION: Exam: XR Chest, 2 Views Exam date and time: 12/12/2019 1:07 AM Age: 24 years old Clinical indication: Other: Left chest pain after boxing, left shoulder dislocation; Patient HX: Could not remove sling, PT could not raise left arm TECHNIQUE: Imaging protocol: XR of the chest Views: 2 views. COMPARISON: CR XR CHEST 2V PA LATERAL 11/22/2018 3:46 PM FINDINGS: Lungs: Mild chronic interstitial prominence. No consolidation. Pleural space: Unremarkable. No pleural effusion. No pneumothorax. Heart/Mediastinum: Unremarkable. No cardiomegaly. Bones/joints: Near anatomic positioning of the left humeral head IMPRESSION: No acute findings. Near anatomic positioning of the left humeral head Dictated and Authenticated by: Rafal Inman MD. Ordering:BARBRA Corbin MD
--- NOTE | 2019-12-12 02:43 | NUR.NOTE ---
Nursing Note: Conscious Sedation: 70 mg Propofol given by MD @ 0136 30 mg Propofol given by MD @ 0132
--- NOTE | 2019-12-12 09:56 | RESPIRATORY ---
Pt came in for L. shoulder dislocation and had a conscious sedation with propofol. Bp 112/60, 2L NC in place, etc02 35, sp02 96, Hr 81. Dr Allred was able to put shoulder back in place quickly, pt maintained airway with adequate ventilation and appropriate vital signs without assistance or RT intervention. No complications during or post procedure from RT view. 0205 am 12/12/19
== END 2019-12-12 02:35 | disposition home or self-care (01) ==
PROVIDERS: Emergency Provider Student in an Organized Health Care Education/Training Program
DX: S43.005A Unspecified dislocation of left shoulder joint, initial encounter (principal); W17.89XA Other fall from one level to another, initial encounter; Y93.71 Activity, boxing
CPT/HCPCS: 23650; 73030; 96374; 96375; 71046; L3650

== ENCOUNTER 2020-06-17 16:34 | Emergency (ER) | payer SELFPAY ==
[2020-06-17 16:38] VITALS: BP 128/96; PULSE 82; RESP 16; TEMP 36.8; O2SAT 97
--- NOTE | 2020-06-17 16:44 | ED.GENADUL_ITS ---
Discharge Plan Disposition Patient Disposition: HOME Condition: Stable Discharge Details Clinical Impression: Pain of right calf Primary Care Provider: None,None ED Provider: Brian Jackson Home Meds and New Rx's Prescriptions: Continued acetaminophen [Tylenol] 325 MG tablet 325 mg PO PRN PRNRF: 0 Ibuprofen [Ibuprofen Ib] 200 MG Tablet 600 mg PO PRN PRNRF: 0 Discharge Instructions Instructions: Leg Pain (ED) Additional Instructions: Your D-dimer test is negative. This is likely not a DVT and more so a musculoskeletal injury. I have placed you in a tall walking boot, you have declined crutches in the ER and will get them [id number]. I am setting you up for a soft tissue-muscular ultrasound on Friday, please contact ultrasound first thing Friday morning. You will return to the ER after your ultrasound for the results. Rest, elevate, cool and/or warm compresses every 2 hours for 20 minutes. Alternate between [id number] Tylenol and/or Motrin as directed for symptomatic control. Please watch for new or worsening symptoms and return to the ER for any concerns. I have placed you on the orthopedic list, please contact their office on Friday for prompt outpatient reevaluation. Referrals: ORTHOPAEDICS,[facility] [OTHER] - Discharge Data Discharge Date/Time-TO BE ENTERED AT DEPARTURE: 06/17/20 18:55 Medical Decision Making 25-year-old gentleman, right calf pain x1 week. Clinically this appears to be musculoskeletal in nature but certainly given there is no obvious injury, this is unilateral, cannot rule out DVT. Given there is no obvious trauma, I do not believe that x-ray is indicated. Patient initially does not want any blood work as he believes this to be musculoskeletal as well. He is agreeable to obtaining just a D-dimer but no other laboratory values. He does understand if the D-dimer is elevated he will need a venous ultrasound as well as a redraw of laboratory values including coags. D-dimer 390. Will not pursue venous ultrasound. Discussed laboratory values with patient. Discussed disposition. Patient is concerned that he has a torn muscle. Again, normal Balderas test. Neuro, vascular, tendon intact. Discussed options. Patient is agreeable to outpatient soft tissue ultrasound of his right lower extremity, this will be set up on Friday. We will also place the patient into a tall walking boot. He declines any crutches from the ER and will buy them [id number] if he needs them. I will place him on the orthopedic list to help expedite outpatient care, he will contact their office on Friday. He will contact radiology department first thing Friday morning and return to the ER after his ultrasound for the results. He will return sooner as needed. He will use [id number] Tylenol and/or Motrin as directed for discomfort. Patient comfortable this plan and has no additional questions or concerns. Medical Records Medical records reviewed: Yes I reviewed the patient's medical records. Lab Data Lab results reviewed: Yes I reviewed the patient's lab results. Labs: Laboratory Tests Range/Units 06/17/20 17:20 D-Dimer (<500) ng/mlFEU 390 HPI General Mode of arrival: ambulatory . Date/Time Provider Initiated Documentation: 06/17/20 16:35 . Limitations to Documentation: no limitations . Information obtained by: patient . HPI Narrative: This is a 25-year-old male, current pack-a-day smoker, denies significant past medical history. 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 Reports right calf pain for 1 week. Has been taking [id number]-[id number] medication with minimal relief. Pain is moderate at rest, worse with movement or ambulating. Denies chest pain, shortness of breath, fever, joint pain, rash. Reports that his leg feels tight but denies any true weakness or tingling. Denies history of DVT or PE. Patient states that he does not have insurance and already has outstanding medical bills, would like to limit his work-up if at all possible. Related Data Home Medications Medication Instructions Recorded Confirmed acetaminophen [Tylenol] 325 mg PO PRN PRN 09/01/12 06/17/20 Ibuprofen [Ibuprofen Ib] 600 mg PO PRN PRN 03/13/17 06/17/20 Allergies Allergy/AdvReac Type Severity Reaction Status Date / Time pollen Allergy Mild sneezes Uncoded 06/17/20 16:44 General SHAHIDA: 3 Review of Systems Constitutional Constitutional: Denies fever(s) and Denies weakness Cardiovascular Cardiovascular: Denies chest pain and Denies dyspnea Respiratory Respiratory: Denies cough and Denies dyspnea Musculoskeletal Musculoskeletal: Denies arthralgias, Denies numbness, Denies stiffness and Denies tingling Integumentary/Breasts Skin/Breast: Denies erythema and Denies rash Neurologic Neurologic: Denies numbness, Denies tingling and Denies weakness FORMERLY [facility], [facility]–1983 Social History Smoking/Tobacco Use Status: Current every day Tobacco Type: cigarettes Smoking risk assessment performed?: Yes Alcohol Intake: current Alcohol Intake frequency: other Drug use: Daily Substance use type: marijuana Details: smoked marijuana last night Do you feel safe at home: Yes Do you feel safe in your relationship?: Yes Exam Const General: cooperative, healthy appearing, comfortable and no acute distress Orientation: alert and awake HENMT Head: normal to inspection, normocephalic and atraumatic Eyes General: appearance normal, both eyes and all related structures Conjunctivae: conjunctivae normal Neck Neck: normal visual inspection, trachea midline and supple Resp Effort & Inspection: normal respiratory effort and able to speak in complete sentences Auscultation: clear to auscultation bilaterally Cardio Rate: regular rate Rhythm: regular rhythm Skin General skin exam: no rashes or lesions noted Neuro General: patient alert, patient awake, moves all extremities and no focal motor deficits Cognition: normal cognition Speech: speech normal Gait: antalgic Motor: muscle tone normal throughout Sensory Exam: no sensory deficits noted Extrem General: full ROM and capillary refill normal Right lower extremity: full ROM, normal capillary refill, hip/thigh Details: normal to inspection and normal ROM; no tenderness and no swelling, knee Details: normal to inspection and normal ROM; no tenderness and no swelling, lower leg Details: tenderness, localized swelling and no edema; inspection abnormal, no erythema, no palpable cords and no ecchymosis, ankle Details: normal to inspection, no edema and normal ROM; no tenderness and no swelling and foot Details: normal capillary refill, normal to inspection, toes with normal ROM, no edema and vascular exam Details: dorsalis pedis pulse present and normal capillary refill; no tenderness and no ecchymosis Left lower extremity: normal to inspection, full ROM and normal capillary refill Other: Right calf with diffuse mild-moderate swelling, tenderness. Positive Homans' sign. Negative Balderas test. 5 out of 5 dorsi and plantar flexion. There is no warmth, erythema. Skin is intact. Neuro, vascular, tendon intact. No palpable cord. Psych Appearance: grossly normal Mental Status: mental status grossly normal
[2020-06-17 18:15] LABS: D-Dimer 390 ng/mlFEU (<500)
== END 2020-06-17 18:55 | disposition home or self-care (01) ==
PROVIDERS: Emergency Provider Physician Assistant
DX: M79.661 Pain in right lower leg (principal)
CPT/HCPCS: 29515; 99283; 85379; 99282

== ENCOUNTER 2021-08-17 06:46 | Emergency (ER) | payer SELFPAY ==
[2021-08-17 06:45] VITALS: BP 124/90; PULSE 71; RESP 16; TEMP 36.8; O2SAT 97
--- NOTE | 2021-08-17 07:01 | ED.GENADUL_ITS ---
Discharge Plan Disposition Patient Disposition: HOME Condition: Stable Discharge Details Clinical Impression: Dislocation of shoulder, left, closed Primary Care Provider: None,None ED Provider: Keith Lebron Home Meds and New Rx's Prescriptions: Continued acetaminophen [Tylenol] 325 MG tablet 325 mg PO PRN PRN Ibuprofen [Ibuprofen Ib] 200 MG Tablet 600 mg PO PRN PRN Discharge Instructions Instructions: Shoulder Dislocation (ED) Additional Instructions: I have placed on the follow up list to try and help get you an orthopedics r eferral if this happens again and you are unable to get it back into place return to the emergency department Referrals: Boris Thompson MD [ [facility] STAFF PHYSICIAN] - Medical Decision Making 26 yo male who states 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 He states it is not uncommon for him to have his shoulder dislocate and awaken him from sleep and he normally can reduce it himself since it's happened so many times. He states it has been about 6 months or so since it last happened but awoke from sleep 2 or so hours ago with left shoulder pain and felt it was dislocated but couldn't reduce it himself so came here. Denies any falls or trauma. He arrives appearing uncomfortable but stable and has visible left shoulder deformity and asymmetry compared to the right. He has minimal rom of the shoulder due to pain, normal distal sensation and pulses. I recommended obtaining an xray and also giving muscle relaxers and pain medication to help with reduction. He has capacity to make his own decisions and declined medicine or an IV and did not want an xray as he states he has no insurance. I did say multiple times that it would be strongly recommended to do an xray but he declined. He requested we try to reduce the shoulder without medication. Given it appeared to be an anterior dislocation on exam I agreed to try reduction. Using gentle treaction and gradually increasing it I slowly abducted the arm and got it to 90 degrees and began to externally rotate the arm and it did feel to reduce and was symmetric to the other shoulder and there did not appear to be any deformity on exam now. He declined an xray again after reduction. We did discuss with how often this seems to happen to him he would benefit from ortho referral. He states he is hesitant as he doesn't have insurance. I did offer to have him talk to our hospice care sales consultant to discuss what can possibly be done and also refer to ortho within 1-2 weeks for evaluation if possible. He is agreeable to have care management reach out to him. He is stable for d/c and return precautions given Differential Diagnosis Differential Diagnosis: dislocation, fracture HPI General Mode of arrival: ambulatory . Date/Time Provider Initiated Documentation: 08/17/21 07:01 . Limitations to Documentation: no limitations . Information obtained by: patient . History of Present Illness 26 year old M presents to the emergency department with the chief complaint of left shoulder pain, described as moderate, Quality is described as aching, Patient reports no radiation. Patient started experiencing this hour(s) (3) and it has been constant. Rest improves symptom(s), Movement worsens symptoms . Patient notes no other symptoms.. Patient did receive the following treatments prior to arrival, none Related Data Home Medications Medication Instructions Recorded Confirmed acetaminophen 325 mg tablet 325 mg PO PRN PRN 09/01/12 08/17/21 (Tylenol) Ibuprofen [Ibuprofen Ib] 600 mg PO PRN PRN 03/13/17 08/17/21 Allergies Allergy/AdvReac Type Severity Reaction Status Date / Time pollen Allergy Mild sneezes Uncoded 08/17/21 06:49 General Stated Complaint: Orthopedic SHAHIDA: 3 Review of Systems All systems reviewed & are unremarkable except as noted in HPI and below Constitutional Constitutional: Denies chills, Denies fever(s) and Denies weakness Cardiovascular Cardiovascular: Denies chest pain and Denies dyspnea Respiratory Respiratory: Denies cough and Denies dyspnea Gastrointestinal Gastrointestinal: Denies abdominal pain, Denies nausea and Denies vomiting Genitourinary Genitourinary: Denies dysuria Integumentary/Breasts Skin/Breast: Denies rash Neurologic Neurologic: Denies weakness PFSH All Active Problems (Updated 08/17/21 @ 07:01 by Keith Lebron MD) Pain of right calf (Acute) Dislocation of shoulder, left, closed (Acute) Social History Smoking/Tobacco Use Status: Current every day Tobacco Type: cigarettes Smoking risk assessment performed?: Yes Alcohol Intake: current Alcohol Intake frequency: other Drug use: Daily Substance use type: marijuana Details: smoked marijuana last night Do you feel safe at home: Yes Do you feel safe in your relationship?: Yes Exam Const Orientation: alert HENMT Head: normal to inspection Ears: external ears normal General nose exam: external nose normal Mouth: moist mucous membranes Eyes General: appearance normal, both eyes and all related structures Neck Neck: normal visual inspection Resp Effort & Inspection: normal respiratory effort and able to speak in complete sentences Cardio Rate: regular rate Skin General skin exam: no rashes or lesions noted Neuro General: patient alert and patient oriented x3 Extrem General: capillary refill normal Psych Mental Status: mental status grossly normal Course Vital Signs Vital signs: Vital Signs Temperature 36.8 C 08/17/21 06:45 Pulse 71 08/17/21 06:45 Respiratory Rate 16 08/17/21 06:45 Blood Pressure 124/90 08/17/21 06:45 Pulse Oximetry 97 08/17/21 06:45 Temperature 36.8 C 08/17/21 06:45 Temperature Source Temporal Artery Scan 08/17/21 06:45 Pulse 71 08/17/21 06:45 Respiratory Rate 16 08/17/21 06:45 Respiratory Effort 08/17/21 06:45 Blood Pressure 124/90 08/17/21 06:45 Blood Pressure Position Sitting 08/17/21 06:45 Pulse Oximetry 97 08/17/21 06:45 Oxygen Delivery Method Room Air 08/17/21 06:45 Oxygen Flow Rate 0 08/17/21 06:45 Pain Level 7 08/17/21 06:50
--- NOTE | 2021-08-17 07:03 | NUR.NOTE ---
Nursing Note:PT INFO GIVEN TO CARE MANAGEMENT, NEEDS INSURANCE & PCP. SYMONE, ED
== END 2021-08-17 12:18 | disposition home or self-care (01) ==
LOC: ER 12:17
PROVIDERS: Emergency Provider Emergency Medicine
DX: S43.085A Other dislocation of left shoulder joint, initial encounter (principal)
CPT/HCPCS: 23650

== ENCOUNTER 2021-08-23 12:47 | Emergency (ER) | payer SELFPAY ==
[2021-08-23 12:54] VITALS: BP 101/75; PULSE 77; RESP 18; TEMP 36.3; O2SAT 98
--- NOTE | 2021-08-23 13:25 | DI.RAD_ITS ---
Exam(s) XR FOREARM RT EXAM: XR FOREARM RT CLINICAL HISTORY: laceration, possible glass in laceration. TECHNIQUE: 2D digital imaging was performed of the left forearm. Two views were obtained. AP and l ateral views were obtained. COMPARISON: No exams were available for comparison FINDINGS: BONES: No acute fracture is present. No bony destructive lesion is seen. Visualized portion of elbow and wrist joints are unremarkable. SOFT TISSUE: There is air in the soft tissues along the anterior aspect of the forearm. No radiopaqu e foreign body is seen. IMPRESSION: No radiopaque foreign body is identified. DATA REPOSITORY: RADIATION DOSE DELIVERED:
--- NOTE | 2021-08-23 15:49 | NUR.NOTE ---
Nursing Note: provider suturing laceration.
[2021-08-23] MEDS: Lidocaine 1% Multi-Dose W/EPI 1/100,000 50 ML VIAL (16:04)
[2021-08-23] MEDS: Bacitracin 1 PACKET (16:16)
--- NOTE | 2021-08-23 16:16 | NUR.NOTE ---
Nursing Note: Dressing applied over sutures; bacitracin, gauze, tegaderm, per provider.
--- NOTE | 2021-08-23 16:17 | ED.GENADUL_ITS ---
Discharge Plan Disposition Patient Disposition: HOME Condition: Good Discharge Details Clinical Impression: Laceration of forearm, right Primary Care Provider: None,None ED Provider: Alberto Faye Home Meds and New Rx's Prescriptions: No Action acetaminophen [Tylenol] 325 MG tablet 325 mg PO PRN PRN Ibuprofen [Ibuprofen Ib] 200 MG Tablet 600 mg PO PRN PRN Discharge Instructions Instructions: Laceration (ED) Additional Instructions: Watch for any signs of infection and return immediately to the emergency department if these occur. Otherwise keep dressing in place for the next 24-48 hours and then keep wound clean and dry. Return to the emergency department 10 days for suture removal. Discharge Data Discharge Date/Time-TO BE ENTERED AT DEPARTURE: 08/23/21 17:01 Medical Decision Making 3 cm laceration to right forearm. No distal deficits, patient does state some radiating pain into his hand with hand movement. Wound was copiously irrigated and cleaned and explored to base in bloodless field with use of epinephrine and no foreign body was noted. Radiological imaging also shows no foreign object. Wound was closed with three 3-0 Prolene sutures and dressed appropriately. After discussion of diagnosis and plan of care patient has no further needs, questions, or concerns and states clear understanding to return to the emergency department for any worsening symptoms. This documentation was generated using [employer] dictation system, please disregard any oddities of phrase or misspellings. HPI General Mode of arrival: ambulatory . Date/Time Provider Initiated Documentation: 08/23/21 14:41 . Information obtained by: patient and RN notes reviewed . History of Present Illness 26 year old M presents to the emergency department with the chief complaint of Right forearm laceration, described as moderate, with intensity rated at 6. Quality is described as sharp, and is localized to the right and upper extremity. Patient started experiencing this hour(s) (1-2) and it has been constant. No relieving factors improve symptom(s), Movement worsens symptoms . Patient notes no other symptoms.. Patient did receive the following treatments prior to arrival, none Related Data Home Medications Medication Instructions Recorded Confirmed acetaminophen 325 mg tablet 325 mg PO PRN PRN 09/01/12 08/17/21 (Tylenol) Ibuprofen [Ibuprofen Ib] 600 mg PO PRN PRN 03/13/17 08/17/21 Allergies Allergy/AdvReac Type Severity Reaction Status Date / Time pollen Allergy Mild sneezes Uncoded 08/17/21 06:49 General Stated Complaint: Laceration SHAHIDA: 3 Review of Systems Narrative: 6 systems reviewed and unremarkable except what is marked below. Musculoskeletal Musculoskeletal: Denies limited range of motion Integumentary/Breasts Skin/Breast: Reports as per HPI PFSH All Active Problems Pain of right calf (Acute) Dislocation of shoulder, left, closed (Acute) Laceration of forearm, right (Acute) Social History Smoking/Tobacco Use Status: Current every day Tobacco Type: cigarettes Smoking risk assessment performed?: Yes Alcohol Intake: current Alcohol Intake frequency: other Drug use: Daily Substance use type: marijuana Details: smoked marijuana last night Do you feel safe at home: Yes Do you feel safe in your relationship?: Yes Exam Const General: cooperative, no acute distress and not ill appearing Orientation: alert, awake and oriented x3 Resp Effort & Inspection: normal respiratory effort, able to speak in complete sentences and no respiratory distress Cardio Rate: regular rate Rhythm: regular rhythm Pulses: radial pulses present and normal peripheral pulses Skin General skin exam: no rashes or lesions noted Neuro General: patient alert, patient awake, patient oriented x3, moves all extremities and no focal motor deficits Sensory Exam: no sensory deficits noted Extrem General: normal exam except as noted Right upper extremity: elbow/forearm Details: tenderness Location: of the mid- shaft forearm and laceration forearm mid anterior Details: linear, actively bleeding, involving subcutaneous tissue, with motor nerve function intact and with sensation intact; no foreign body present, not contaminated and not involving muscle tissue; no foreign bodies Course Vital Signs Vital signs: Vital Signs Temperature 36.3 C L 08/23/21 12:54 Pulse 77 08/23/21 12:54 Respiratory Rate 18 08/23/21 12:54 Blood Pressure 101/75 08/23/21 12:54 Pulse Oximetry 98 08/23/21 12:54 Temperature 36.3 C L 08/23/21 12:54 Temperature Source Skin 08/23/21 12:54 Pulse 77 08/23/21 12:54 Respiratory Rate 18 08/23/21 12:54 Respiratory Effort 08/23/21 12:58 Blood Pressure 101/75 08/23/21 12:54 Blood Pressure Position Sitting 08/23/21 12:54 Pulse Oximetry 98 08/23/21 12:54 Oxygen Delivery Method Room Air 08/23/21 12:54 Oxygen Flow Rate 0 08/23/21 12:54 Pain Level 9 08/23/21 15:15 Procedures Laceration Laceration 1: Site: upper extremity Side (If applicable): right Size (cm): 3 Description: linear Depth: simple, single layer Local Anesthetic: Lidocaine 1% and with Epi Amount of anesthesia used (mL): 5 Pre-repair: wound explored, irrigated extensively and deep structures intact Skin layer closed with: other (prolene) Size (cm): 3-0 Number of sutures: 3 Technique: simple, interrupted
[2021-08-23 16:28] VITALS: BP 101/75; PULSE 77; RESP 18; TEMP 36.3; O2SAT 98
== END 2021-08-23 17:01 | disposition home or self-care (01) ==
PROVIDERS: Emergency Provider Nurse Practitioner Family
DX: S51.811A Laceration without foreign body of right forearm, initial encounter (principal); F17.210 Nicotine dependence, cigarettes, uncomplicated; X58.XXXA Exposure to other specified factors, initial encounter; Z23 Encounter for immunization
CPT/HCPCS: 12002; 90471; 99283; 73090; 99282

== ENCOUNTER 2021-09-02 06:48 | Emergency (ER) | payer SELFPAY ==
[2021-09-02 06:58] VITALS: BP 111/70; PULSE 60; RESP 16; TEMP 36.6; O2SAT 98
--- NOTE | 2021-09-02 07:02 | W.ED.GENAD ---
Discharge Plan Disposition Patient Disposition: HOME Condition: Good Discharge Details Clinical Impression: Encounter for removal of sutures Primary Care Provider: None,None ED Provider: Shaquille Allred Home Meds and New Rx's Prescriptions: No Action acetaminophen [Tylenol] 325 MG tablet 325 mg PO PRN PRN Ibuprofen [Ibuprofen Ib] 200 MG Tablet 600 mg PO PRN PRN Discharge Instructions Additional Instructions: At this time your sutures have been removed. Please keep the area bandaged, and do not apply any aggressive tension over the next week because the skin continues to heal. If any stress or strain is applied to the area it could cause the dehiscence of the wound. Please contact the number [phone] to have your medical records release done to have a disc made for your images. If you would like to follow-up with an contract management specialist in this area rather than the [facility] area, please feel free to reach out to our contract management specialist whose phone numbers I have included below. If you notice any worsening of your symptoms, or any new symptoms such as vomiting, diarrhea, fever, chills, shortness of breath, chest pain, numbness, weakness, or fainting , please return immediately to the emergency department for reevaluation. Please follow up with your primary care provider as soon as possible for reassessment and reevaluation. As always, it was a pleasure participating in your medical care today. Referrals: Gary Lindsey MD [ [facility] STAFF PHYSICIAN] - Boris Thompson MD [ [facility] STAFF PHYSICIAN] - Medical Decision Making 26-year-old male presents today for evaluation of suture removal. Sutures were placed about 7 to 10 days ago after the patient received a laceration to the right forearm. He denies any complications. He denies any redness or drainage or swelling. He does admit to some numbness slightly distal to the laceration site on the anterior aspect of the forearm. No weakness otherwise. No other complaints at this time. As an aside, the patient has had multiple dislocations of his left shoulder, most recent dislocation was a few days ago, and it was relocated at [facility]. He states that he was told he needs to have it shaved down, and is requesting recommendations for orthopedics. Physical exam demonstrates a well-healed laceration, 3 simple interrupted sutures were removed without complication. Patient did request orthopedic recommendations, and we will give phone numbers for orthopedic clinic here. The remainder the patient's exam is otherwise stable. He does have some restriction in movement of his left shoulder, but no signs of dislocation at this time. Discussed red flags for which to return. I have extensively reviewed the treatment plan and discharge instructions with the patient. I have addressed all patient concerns at this time. The patient was made aware of what symptoms to monitor for that would warrant a return to the emergency department. Discussed the plan with the patient, they demonstrate verbal understanding and agreement with our assessment and plan at this time. The documentation in this chart was dictated using [employer] dictation software. Please excuse any dictation errors. HPI General Date/Time Provider Initiated Documentation: 09/02/21 06:49. HPI Narrative: 26-year-old male presents today for evaluation of suture removal. Sutures were placed about 7 to 10 days ago after the patient received a laceration to the right forearm. He denies any complications. He denies any redness or drainage or swelling. He does admit to some numbness slightly distal to the laceration site on the anterior aspect of the forearm. No weakness otherwise. No other complaints at this time. As an aside, the patient has had multiple dislocations of his left shoulder, most recent dislocation was a few days ago, and it was relocated at [facility]. He states that he was told he needs to have it shaved down, and is requesting recommendations for orthopedics. Related Data Home Medications Medication Instructions Recorded Confirmed acetaminophen 325 mg tablet 325 mg PO PRN PRN 09/01/12 08/17/21 (Tylenol) Ibuprofen [Ibuprofen Ib] 600 mg PO PRN PRN 03/13/17 08/17/21 Allergies Allergy/AdvReac Type Severity Reaction Status Date / Time pollen Allergy Mild sneezes Uncoded 08/17/21 06:49 General SHAHIDA: 3 Review of Systems All systems reviewed & are unremarkable except as noted in HPI and below PFSH All Active Problems Pain of right calf (Acute) Dislocation of shoulder, left, closed (Acute) Laceration of forearm, right (Acute) Encounter for removal of sutures (Acute) Social History Smoking/Tobacco Use Status: Current every day Tobacco Type: cigarettes Smoking risk assessment performed?: Yes Alcohol Intake: current Alcohol Intake frequency: other Drug use: Daily Substance use type: marijuana Details: smoked marijuana last night Do you feel safe at home: Yes Do you feel safe in your relationship?: Yes Exam Narrative Exam Narrative: 1.Const: Well-nourished, Well-developed, appearing stated age 2.Eyes: PERRL, no conjunctival injection, and symmetrical lids. 3.ENT: Atraumatic external nose and ears. Moist MM. Neck: Symmetric, trachea midline, No thyromegaly. 4.CVS: +S1/S2, No murmurs or gallops. Peripheral pulses 2+ and equal in all extremities. Brisk capillary refill in all extremities. 5.RESP: Unlabored respiratory effort. Clear to auscultation bilaterally. No wheezes rales or rhonchi 6.GI: Soft, Nontender/Nondistended, No hepatosplenomegaly. No guarding or rebound. 7.MSK: Normocephalic/Atraumatic, Extremities w/o deformity or ttp No cyanosis or clubbing, Normal movement of all extremities 8.Skin: Warm, Dry. Right forearm demonstrates a well-healed laceration site with good wound edge reapproximation. No evidence of dehiscence. No redness swelling or signs of infection. 9.Neuro: endoscopy tech II-XII grossly intact. Sensation grossly intact, no focal neurologic deficits. However the patient does have slight subjective diminishment of sensation just distal to the laceration site on the forearm, but normal sensation over the fingers and hand. 10.Psych: (AAO) x3. Appropriate mood and affect
== END 2021-09-02 07:20 | disposition home or self-care (01) ==
PROVIDERS: Emergency Provider Student in an Organized Health Care Education/Training Program
DX: S51.811D Laceration without foreign body of right forearm, subsequent encounter (principal); F17.210 Nicotine dependence, cigarettes, uncomplicated; X58.XXXD Exposure to other specified factors, subsequent encounter
CPT/HCPCS: 99281

== ENCOUNTER 2021-10-16 15:03 | Outpatient (CLI) | payer MEDICAID, SELFPAY ==
--- NOTE | 2021-10-16 14:45 | DI.RAD_ITS ---
Exam(s) XR SHOULDER LT COMPLETE 2+V EXAM: XR SHOULDER LT COMPLETE 2+V CLINICAL HISTORY: LEFT SHOULDER F/U. TECHNIQUE: 2D digital imaging was performed of the left shoulder. Two images were obtained. AP and axillary views were obtained. COMPARISON: CR,XR XR SHOULDER LT COMP POST REDUC from 12/12/2019 CR,XR XR SHOULDER LT COMPLETE 2+V from 12/12/2019 FINDINGS: BONES: No acute fracture is present. No bony destructive lesion is seen. Note is made of an os acromi mahi which is a normal variant. JOINTS: No dislocation present. SOFT TISSUE: Normal. IMPRESSION: Unremarkable radiographs of the left shoulder. DATA REPOSITORY: RADIATION DOSE DELIVERED:
== END 2021-10-16 15:04 | disposition home or self-care (01) ==
LOC: DIORS 15:03
PROVIDERS: Visit Provider Student in an Organized Health Care Education/Training Program
DX: S43.085D Other dislocation of left shoulder joint, subsequent encounter (principal)
CPT/HCPCS: 73030

== ENCOUNTER 2021-12-15 15:29 | Emergency (ER) | payer MEDICAID, SELFPAY ==
[2021-12-15 15:32] VITALS: BP 131/79; PULSE 80; RESP 20; TEMP 36.7; O2SAT 99
[2021-12-15] MEDS: Dexamethasone 4 MG TAB PO (16:17)
[2021-12-15] MEDS: HYDROmorphone 2 MG/ML SYR 1 MG IM (16:17)
[2021-12-15] MEDS: Ketorolac 15 MG/ML VIAL IM (16:18)
[2021-12-15] MEDS: diazePAM 5 MG TAB PO ×3 (16:40→17:39)
--- NOTE | 2021-12-15 17:30 | ED.GENADUL_ITS ---
Discharge Plan Disposition Patient Disposition: HOME Condition: Stable Discharge Details Clinical Impression: Left lumbar radiculopathy Primary Care Provider: Eddie Little ED Provider: Gisela Baez Home Meds and New Rx's Prescriptions: New prednisone 20 mg tablet 40 mg PO ONCE Qty: 8 0RF diazepam [Valium] 5 mg tablet 5 mg PO BID PRNQty: 10 0RF Continued acetaminophen [Tylenol] 325 MG tablet 325 mg PO PRN PRN Ibuprofen [Ibuprofen Ib] 200 MG tablet 600 mg PO PRN PRN Discharge Instructions Additional Instructions: Take the prednisone daily, you received a dose today, take the full dose tomorrow May take Valium, Valium can be addictive, use only as needed for discomfort, do not combine with alcohol or any other sedating medications, you may take this twice a day Do not drive for 8 hours after taking this medication Follow-up with your primary care physician for reassessment this week and return earlier should you have changes in bowel or bladder, fever, chills, weakness in your lower extremities, or with any new or worsening complaints Stand Alone Forms: Physical Therapy Referral Discharge Data Discharge Date/Time-TO BE ENTERED AT DEPARTURE: 12/15/21 17:42 Medical Decision Making Patient with nonfocal neurological exam, low suspicion for cauda equina syndrome, suspect patient likely has herniated disc history of lumbar spine Placed on prednisone and Valium Ambulatory steady gait at time of discharge Return precautions discussed and patient expressed understanding PT referral supplied Medical Records Medical records reviewed: Yes I reviewed the patient's medical records. Lab Data Lab results reviewed: Yes I reviewed the patient's lab results. HPI General Date/Time Provider Initiated Documentation: 12/15/21 15:36 . HPI Narrative: 26-year-old male presents with history of chronic back pain that worsened today [place] 5 [place] States that the pain and paresthesias are radiating into his legs. He denies any fever or chills. He denies changes in bowel or bladder or groin numbness. Related Data Home Medications Medication Instructions Recorded Confirmed acetaminophen 325 mg tablet 325 mg PO PRN PRN 09/01/12 12/15/21 (Tylenol) Ibuprofen [Ibuprofen Ib] 600 mg PO PRN PRN 03/13/17 12/15/21 diazepam 5 mg tablet (Valium) 5 mg PO BID PRN #10 tabs 12/15/21 prednisone 20 mg tablet 40 mg PO ONCE #8 tabs 12/15/21 Previous Rx's Medication Instructions Recorded diazepam 5 mg tablet (Valium) 5 mg PO BID PRN #10 tabs 12/15/21 prednisone 20 mg tablet 40 mg PO ONCE #8 tabs 12/15/21 Allergies Allergy/AdvReac Type Severity Reaction Status Date / Time pollen Allergy Mild sneezes Uncoded 12/15/21 15:49 General Stated Complaint: Nk/Back Pain SHAHIDA: 4 Review of Systems All systems reviewed & are unremarkable except as noted in HPI and below PFSH All Active Problems (Updated 12/15/21 @ 17:29 by ANDREINA Overton) Left lumbar radiculopathy (Acute) Bursitis of left shoulder (Acute) SLAP lesion of left shoulder (Acute) Instability of left shoulder joint (Acute) Pain of right calf (Acute) Social History Smoking/Tobacco Use Status: Current every day Tobacco Type: cigarettes Smoking risk assessment performed?: Yes Alcohol Intake: current Alcohol Intake frequency: other Drug use: Daily Substance use type: marijuana Details: smoked marijuana last night Current gender identity: male Do you feel safe at home: Yes Do you feel safe in your relationship?: Yes Exam Const General: acute distress Eyes Pupils: PERRL Resp Effort & Inspection: normal respiratory effort Cardio Rate: regular rate Rhythm: regular rhythm Other: distal pulses intact GI Other: No CVA tenderness, no abdominal bruit or pulsatile mass Back/Spine/Pelvis Other: Paraspinal and midline lumbar tenderness Skin General skin exam: no rashes or lesions noted Neuro General: patient alert and patient oriented x3 Cranial Nerves: CN's II-XI intact bilaterally and tongue midline Sensory Exam: no sensory deficits noted Other: DTRs and strength, sensation intact distally Course Vital Signs Vital signs: Vital Signs Temperature 36.7 C 12/15/21 15:32 Pulse 80 12/15/21 15:32 Respiratory Rate 20 12/15/21 15:32 Blood Pressure 131/79 12/15/21 15:32 Pulse Oximetry 99 12/15/21 15:32 Temperature 36.7 C 12/15/21 15:32 Temperature Source Temporal Artery Scan 12/15/21 15:32 Pulse 80 12/15/21 15:32 Respiratory Rate 20 12/15/21 15:32 Respiratory Effort Non-Labored 12/15/21 15:37 Blood Pressure 131/79 12/15/21 15:32 Blood Pressure Position Sitting 12/15/21 15:32 Pulse Oximetry 99 12/15/21 15:32 Oxygen Delivery Method Room Air 12/15/21 15:32 Oxygen Flow Rate 0 12/15/21 15:32 Pain Level 10 12/15/21 16:18
== END 2021-12-15 17:42 | disposition home or self-care (01) ==
PROVIDERS: Emergency Provider Physician Assistant; PCP Family Medicine
DX: M54.16 Radiculopathy, lumbar region (principal)
CPT/HCPCS: 96372; 99284; 99283; J1170; J1885; J3360; J8540

== ENCOUNTER 2022-01-27 15:09 | Emergency (ER) | payer MEDICAID, SELFPAY ==
[2022-01-27 15:22] VITALS: BP 142/97; PULSE 95; RESP 16; TEMP 36.8; O2SAT 99
[2022-01-27 15:52] LABS: Bilirubin Negative (Negative); Blood Negative (Negative); Clarity Clear (Clear); Glucose Negative (Negative); Ketones Negative (Negative); Leukocyte Esterase Negative (Negative); Nitrite Negative (Negative); Specific Gravity >= 1.030 (1.005-1.025)
--- NOTE | 2022-01-27 15:59 | W.ED.GENAD ---
Discharge Plan Disposition Patient Disposition: Home Condition: Stable Discharge Details Clinical Impression: Acute left-sided low back pain Primary Care Provider: Eddie Little ED Provider: Antoine Henriquez Home Meds and New Rx's Prescriptions: Continued acetaminophen [Tylenol] 325 MG tablet 325 mg PO PRN PRN Ibuprofen [Ibuprofen Ib] 200 MG tablet 600 mg PO PRN PRN Discharge Instructions Instructions: Acute Low Back Pain (ED) Additional Instructions: Please avoid any activities that worsen pain. Please take ibuprofen over the counter. Take 600mg by mouth every 6 hours as needed for pain. Use lidocaine patches. These are available [id number]. Dose according to label. Please contact your primary care physician to arrange follow-up. Return to the ER immediately for any worsening or new concerning symptoms. Stand Alone Forms: Work Release Referrals: Eddie Little [Primary Care Provider] - Discharge Data Discharge Date/Time-TO BE ENTERED AT DEPARTURE: 01/27/22 16:22 Medical Decision Making 1600 --26-year-old male here with left mid to low back pain started 3 days ago and has persisted. 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 He does not recall any specific trauma. The pain does seem musculoskeletal in etiology with focal tenderness reproducible pain with twisting motion. Abdominal exam benign. Considered renal stone and pyelonephritis. Urinalysis reviewed and nondiagnostic, no RBCs or WBCs in his urine. Plan to treat with lidocaine patch and [id number] with primary care physician if symptoms do not resolve over the next few days. He was encouraged to return immediately should any worsening or new concerning symptoms. patient stable at time of discharge. HPI General Mode of arrival: ambulatory. Date/Time Provider Initiated Documentation: 01/27/22 15:34. Limitations to Documentation: no limitations. Information obtained by: patient. HPI Narrative: 26-year-old male presents with chief complaint of left mid to low back pain. Pain started 3 days ago and has persisted. Pain worse with certain movements including twisting. He has no associated urinary symptoms. No abdominal pain. No nausea vomiting. He does note he had some loose stool recently. No fever. No testicular pain or swelling. Related Data Home Medications Medication Instructions Recorded Confirmed acetaminophen 325 mg tablet 325 mg PO PRN PRN 09/01/12 01/27/22 (Tylenol) Ibuprofen [Ibuprofen Ib] 600 mg PO PRN PRN 03/13/17 01/27/22 Allergies Allergy/AdvReac Type Severity Reaction Status Date / Time pollen Allergy Mild sneezes Uncoded 01/27/22 15:25 General Stated Complaint: FlankPain SHAHIDA: 3 Review of Systems All systems reviewed & are unremarkable except as noted in HPI and below Constitutional Constitutional: Denies fever(s) Genitourinary Genitourinary: Denies hematuria and Denies urinary frequency PFSH All Active Problems (Updated 01/27/22 @ 16:07 by Antoine Henriquez MD) Acute left-sided low back pain (Acute) Bursitis of left shoulder (Acute) SLAP lesion of left shoulder (Acute) Instability of left shoulder joint (Acute) Pain of right calf (Acute) Social History Smoking/Tobacco Use Status: Current every day Tobacco Type: cigarettes Smoking risk assessment performed?: Yes Alcohol Intake: current Alcohol Intake frequency: other Drug use: Daily Substance use type: marijuana Current gender identity: male Do you feel safe at home: Yes Do you feel safe in your relationship?: Yes Exam Const General: cooperative and no acute distress HENMT Mouth: moist mucous membranes Eyes Conjunctivae: normal conjunctivae Sclera: normal sclerae Neck Neck: trachea midline and supple Resp Auscultation: clear to auscultation bilaterally, no rales, no rhonchi and no wheezes Cardio Rate: regular rate and not tachycardic Rhythm: regular rhythm GI Palpation: soft, not firm, no guarding, no masses, not rigid and nontender Back/Spine/Pelvis Back: No erythema and No warmth Cervical Spine: cervical ROM normal and No cervical spinal tenderness Thoracic/Lumbar Spine: paraspinal tenderness (low thoracic and high lumbar left), No thoracic spinal tenderness and No lumbar spinal tenderness Skin General skin exam: no rashes or lesions noted Neuro General: patient alert, patient awake, patient oriented x3 and tone normal Cognition: normal cognition Speech: speech normal Motor: strength 5/5 throughout Sensory Exam: no sensory deficits noted Extrem General: no edema Psych Appearance: grossly normal Mental Status: mental status grossly normal Course Vital Signs Vital signs: Vital Signs Temperature 36.8 C 01/27/22 15:22 Pulse 95 H 01/27/22 15:22 Respiratory Rate 16 01/27/22 15:22 Blood Pressure 142/97 H 01/27/22 15:22 Pulse Oximetry 99 01/27/22 15:22 Temperature 36.8 C 01/27/22 15:22 Pulse 95 H 01/27/22 15:22 Respiratory Rate 16 01/27/22 15:22 Respiratory Effort 01/27/22 15:26 Blood Pressure 142/97 H 01/27/22 15:22 Blood Pressure Position Sitting 01/27/22 15:22 Pulse Oximetry 99 01/27/22 15:22 Oxygen Delivery Method Room Air 01/27/22 15:22 Oxygen Flow Rate 0 01/27/22 15:22 Pain Level 7 01/27/22 15:27 Lab/Test Results Lab/Test Results: Laboratory Tests Range/Units 01/27/22 15:37 Urine Color (Yellow) Yellow Urine Clarity (Clear) Clear Urine pH (5-8) 7.0 Ur Specific [place] (1.005-1.025) >= 1.030 H Urine Protein (Negative) mg/dL Negative Urine Ketones (Negative) mg/dL Negative Urine Blood (Negative) Negative Urine Nitrite (Negative) Negative Urine Bilirubin (Negative) Negative Urine Urobilinogen (Up TO 0.2) EU/dL 1.0 H Ur Leukocyte Esterase (Negative) Negative Urine Glucose (Negative) mg/dL Negative PAWSS Have you Been Recently Intoxicated or Drunk Within the Last 30 days?: No Have you Ever Experienced Previous Episodes of Alcohol Withdrawal?: No Have you ever Experienced Withdrawal Seizures?: No Have you ever Experienced Delirium Tremens(DT)s?: No Have you ever undergone Alcohol Rehabilitation Treatment (i.e, inpt ot outpatient treatment programs)?: No Have you ever Experienced Blackouts?: No Have you ever Combined Alcohol with other Downers within the last 90 days?: No Result: 0
[2022-01-27] MEDS: Ibuprofen 600 MG TAB PO (16:12)
[2022-01-27] MEDS: Lidocaine 5% Patch 1 PATCH TP (16:14)
== END 2022-01-27 16:22 | disposition home or self-care (01) ==
PROVIDERS: Emergency Provider Student in an Organized Health Care Education/Training Program; PCP Family Medicine
DX: M54.50 Low back pain, unspecified (principal)
CPT/HCPCS: 99283; 81003

== ENCOUNTER 2023-04-10 13:30 | Observation (INO) | payer MEDICAID, SELFPAY ==
[2023-04-10] VITALS (63 sets, daily range): BP systolic 87–160; BP diastolic 53–113; PULSE 57–88; RESP 7–30; TEMP 35.7–36.9; O2SAT 19–100; BMI 22.8
[2023-04-10] MEDS: Ondansetron 4 MG/2 ML VIAL IVP (13:43)
[2023-04-10] MEDS: MORPHine 10 MG/ML VIAL 6 MG IVP ×3 (13:43→14:57)
[2023-04-10 13:45] LABS: Abs Immature Grans 0.05 10^3/uL (0.0-0.06); Absolute Eosinophil Count 0.25 10^3/uL (0.0-0.7); Absolute Lymphocyte Count 3.36 10^3/uL (1.2-3.4); Absolute Monocyte Count 1.03 10^3/uL (0.1-0.8); Absolute Neutrophil Count 6.13 10^3/uL (1.2-6.7); Basophils % 0.9; Eosinophils % 2.3; HCT 52.2 % (40.0-50.0); HGB 17.6 g/dL (13.5-17.5); Immature Grans % 0.5; Lymphocytes % 30.8; MCH 28.3 pg (27.0-33.0); MCHC 33.7 % (32.0-36.0); MCV 84 fL (80-95); MPV 9.6 fL (8.0-11.0); Monocytes % 9.4; Neutrophils % 56.1; Platelet Count 303 10^3/uL (130-400); RBC 6.21 10^6/uL (4.36-5.78); RDW 12.7 % (11.8-14.1); RDW-SD 39.1 fL; WBC 10.92 10^3/uL (4.4-10.8)
[2023-04-10] MEDS: Lactated Ringers 1,000 ML 1000 ML IV (13:45)
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
[2023-04-10] MEDS: Normal Saline - Diluent 50 ML VIAL IJ (13:55)
[2023-04-10 13:56] LABS: INR 1.1 (0.9-1.1); PTT Activated 20.5 sec (23.6-32.8); Prothrombin Time 11.1 sec (9.1-11.1)
[2023-04-10] MEDS: Omnipaque 350 MG/ML 100 ML BTL IJ (13:56)
[2023-04-10 13:58] LABS: ALT 34 U/L (16-63); AST 18 U/L (15-37); Albumin 3.9 g/dL (3.4-5.0); Alkaline Phosphatase 75 U/L (46-116); Anion Gap 9.3 mmol/L (3-11); BUN 20 mg/dL (7-18); Bilirubin, Total 1.5 mg/dL (0.2-1.0); CO2 27.7 mmol/L (21.0-32.0); Chloride 103 mmol/L (98-107); Estimated GFR 103.84 (mL/min/1.73m2); Glucose 105 mg/dL (74-106); Potassium 3.8 mmol/L (3.5-5.1); Sodium 140 mmol/L (136-145); Total Protein 7.4 g/dL (6.4-8.2)
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
[2023-04-10 14:09] LABS: Diff Comment RBC Morph Reviewed; RBC Morphology Normal
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
[2023-04-10] MEDS: ceFAZolin 2,000 MG in Normal Saline 100 ML 200 MG IVPB (14:50)
--- NOTE | 2023-04-10 15:00 | NUR.NOTE ---
Nursing Note: Bleeding is well controlled, oozing slightly. Lightly covered with dry sterile gauze. Patient is anxious but cooperative; he is resistive to receiving pain medication due to disclosed history of morphine abuse. Patient adds that it has been years since he has abused morphine and wants to keep it that way. Due to continued pain he does accept second dose of morphine, however requests that I give half of the dose to start. This junior technical writer agrees and administers 3mg of morphine. Pt then agrees to receive second half of dose, and was given an additional 3mg of morphine per his request for a total of 12mg. He continues to appear restless and moan with pain, but does not want any more medication at this time. He does well with reassurance as he does also have anxiety.
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
[2023-04-10] MEDS: MORPHine 4 MG/ML SYR IVP (17:34)
[2023-04-10] MEDS: ACETAMINOPHEN 1,000 MG/100 ML BTL 400 MG IVPB (17:37)
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
[2023-04-10] MEDS: Nicotine 21 MG/24 HR PATCH TD (18:27)
[2023-04-10] MEDS: Tranexamic Acid 1,000 MG/10 ML VIAL 1000 MG (19:11)
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
--- NOTE | 2023-04-10 21:10 | W.ANESPOSTOP ---
Postoperative Evaluation Date, Time and Location Date Performed: 04/10/23 Time Performed: 21:10 Patient Location: PACU Vital Signs Most Recent Imported Vital Signs: Most Recent Vital Signs Temp Pulse Resp BP Pulse Ox 36.6 C 80 16 146/63 H 98 04/10/23 20:50 04/10/23 20:50 04/10/23 20:50 04/10/23 20:50 04/10/23 20:50 Pain Score Most Recent Pain Score: Most Recent Pain Score Pain Level [Left Knee Joint] 9 04/10/23 14:39 Pain Level 2 04/10/23 20:50 Assessment Mental Status: Awake (Alert & Oriented to Patient Baseline) Airway and Respiratory Function: Patent airway with normal (patient baseline) respiratory exam Cardiovascular Function: Hemodynamically Stable Hydration Status: Adequately Hydrated Nausea & Vomiting: No Nausea or Vomiting Pain: Pain is tolerable per patient Peripheral Nerve Block: Patient did not receive a nerve block
[2023-04-10] MEDS: traMADol 50 MG TAB PO (22:03)
[2023-04-11] MEDS: ceFAZolin 1 GM/50 ML BAG IVPB ×2 (00:03→08:25)
[2023-04-11 00:05] VITALS: BP 127/84; PULSE 76; RESP 20; TEMP 36.5; O2SAT 100
[2023-04-11] MEDS: Acetaminophen 500 MG TAB 1000 MG PO ×3 (00:12→15:22)
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
[2023-04-11 03:27] VITALS: BP 114/64; PULSE 83; RESP 18; TEMP 36.6; O2SAT 95
[2023-04-11] MEDS: traMADol 50 MG TAB PO ×2 (03:31→13:04)
[2023-04-11] MEDS: Naproxen 500 MG TAB PO (04:55)
[2023-04-11 07:16] VITALS: BP 133/55; PULSE 71; RESP 18; TEMP 36.6; O2SAT 96
[2023-04-11] MEDS: MORPHine 10 MG/ML VIAL IVP ×2 (09:02→10:34)
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
[2023-04-11 11:43] VITALS: BP 134/73; PULSE 77; RESP 18; TEMP 35.9; O2SAT 98
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
--- NOTE | 2023-04-14 08:53 | NUR.NOTE ---
Accessed Pt chart to cancel a Xray order for Diagnostic Imaging.
== END 2023-04-11 15:29 | disposition home or self-care (01) ==
LOC: ER 16:58 → SUR 19:17 → MS 04-11 07:22
PROVIDERS: Emergency Medicine; Admitting Provider Student in an Organized Health Care Education/Training Program; Emergency Provider Emergency Medicine; Visit Provider Student in an Organized Health Care Education/Training Program
PROC: (CPT 27380; principal; 2023-04-10 16:15)
DX: S82.152B Displaced fracture of left tibial tuberosity, initial encounter for open fracture type I or II (principal); S86.812A Strain of other muscle(s) and tendon(s) at lower leg level, left leg, initial encounter; S76.112A Strain of left quadriceps muscle, fascia and tendon, initial encounter; W32.0XXA Accidental handgun discharge, initial encounter; F12.90 Cannabis use, unspecified, uncomplicated; F17.210 Nicotine dependence, cigarettes, uncomplicated
CPT/HCPCS: 27380; 11012; 29871; 27372; 00123; 73706; 80053; 86850; 86900; 86901; 96365; 96366; 96367; 96375; 96376; 97162; 97530; 99285; 73560; 85025; 85610; 85730; G0378; J0131; J0690; J2001; J2250; J2270; J2371; J2405; J2704; J3490

== ENCOUNTER 2023-05-21 15:52 | Outpatient (CLI) | payer MEDICAID, SELFPAY ==
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
== END 2023-05-21 15:53 | disposition home or self-care (01) ==
LOC: DIORS 15:58
PROVIDERS: Visit Provider Student in an Organized Health Care Education/Training Program
DX: S82.152B Displaced fracture of left tibial tuberosity, initial encounter for open fracture type I or II (principal); S86.812A Strain of other muscle(s) and tendon(s) at lower leg level, left leg, initial encounter; W32.0XXA Accidental handgun discharge, initial encounter
CPT/HCPCS: 73562

== ENCOUNTER 2023-07-09 15:57 | Outpatient (CLI) | payer MEDICAID, SELFPAY ==
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
== END 2023-07-09 15:58 | disposition home or self-care (01) ==
LOC: DIORS 15:57
PROVIDERS: Visit Provider Student in an Organized Health Care Education/Training Program
DX: S86.812D Strain of other muscle(s) and tendon(s) at lower leg level, left leg, subsequent encounter (principal); S81.032D Puncture wound without foreign body, left knee, subsequent encounter; X58.XXXD Exposure to other specified factors, subsequent encounter
CPT/HCPCS: 73560

== ENCOUNTER → 2023-07-10 13:35 | Outpatient (CLI) | payer MEDICAID, SELFPAY ==
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
== END ==
PROVIDERS: Visit Provider Student in an Organized Health Care Education/Training Program
DX: S86.812A Strain of other muscle(s) and tendon(s) at lower leg level, left leg, initial encounter; X58.XXXA Exposure to other specified factors, initial encounter
CPT/HCPCS: 73721

== ENCOUNTER 2023-07-18 11:21 | Day surgery (SDC) | payer MEDICAID, SELFPAY ==
[2023-07-18] VITALS (23 sets, daily range): BP systolic 107–149; BP diastolic 51–95; PULSE 57–80; RESP 14–23; TEMP 36.5–37.1; O2SAT 95–99; BMI 22.1
--- NOTE | 2023-07-18 07:19 | W.PM.DSUDISC ---
Date of service: 07/18/23 Time of Service: 16:00 Discharge Plan Disposition Patient Disposition: Home Condition: Stable Discharge Details Attending Provider: Gary Lindsey Primary Care Provider: None,None Home Meds and New Rx's Prescriptions: New oxycodone 5 mg tablet 5 - 10 mg PO Q4H MDD 30 mg PRN (Reason: moderate to severe pain) Qty: 18 0RF Discharge Instructions Additional Instructions: Surgery: Left knee arthroscopy with lysis of adhesions and removal osteochondral fracture. Manipulation under anesthesia. Removal of pretibial prominent knot stack. Activity: Weightbearing as tolerated. Advance range of motion as best possible. No knee brace or crutches needed as soon as comfortable and stable walking. Resume physical therapy next week. Prescription: Oxycodone 5 mg take 1-2 every 4-6 hours as needed for severe pain You may use [id number] Tylenol (acetaminophen) as needed for mild to moderate pain. Dressings: Leave dressing in place for 3 days. May then remove and leave open to air or cover incisions with Band-Aids. Leave the sticky Steri-Strips in place until they fall off or remove them after you shower. May shower after 5 days. Follow-up: 10-[address] Lindsey. Follow-up with your primary care doctor for bloody stool and go to the emergency room if it becomes an emergency. You may take off the leg compression stockings this evening at home. You may also leave them on a few days longer if you have a history of leg swelling or edema. Let us know right away if you develop any redness, drainage, fevers, chest pain, or trouble breathing. Do not drink alcohol or drive for at least 24 hours after anesthesia. Please call the office during business hours with any questions or concerns. Discharge Orders Discharge Orders: Discharge Order (Routine); Ordered 07/18/23 Ordered By: Yuki Olmedo DS: Diagnosis Discharge Diagnosis (1) Stiffness of left knee: Status: Acute (2) Foreign body of left lower leg: Status: Acute (3) Traumatic rupture of left patellar tendon: Status: Acute
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
[2023-07-18 12:59] LABS: HCT 47.8 % (40.0-50.0); HGB 16.4 g/dL (13.5-17.5); MCH 29.3 pg (27.0-33.0); MCHC 34.3 % (32.0-36.0); MCV 86 fL (80-95); MPV 9.8 fL (8.0-11.0); Platelet Count 274 10^3/uL (130-400); RBC 5.59 10^6/uL (4.36-5.78); RDW 12.7 % (11.8-14.1); RDW-SD 39.8 fL; WBC 8.98 10^3/uL (4.4-10.8)
[2023-07-18] MEDS: ceFAZolin 2 GM/50 ML BAG IVPB (14:24)
[2023-07-18] MEDS: TRANEXAMIC ACID/SOD. CHL. 1,000 MG/100 ML BAG 600 MG IVPB (14:28)
--- NOTE | 2023-07-18 14:37 | W.ANESNERVE ---
Nerve Block Single Injection Procedure Date and Time Date Performed: 07/18/23 Procedure Start: 14:10 Location Where Procedure Performed Procedure Location: Day Surgery Unit Reason Performed: Postoperative Analgesia Requesting Provider: Gary Lindsey Timeout Performed Timeout Performed: Yes Monitoring Used ECG, Blood Pressure and SpO2 Sterility Sterility: Hand Hygiene, Surgical Cap, Surgical Mask, Sterile Gloves and Chlorhexidine Sedation Given During Procedure Sedation Given (Indicate Dose Given): Versed IV Dose:: 2 mg, Ketamine IV Dose:: 5 mg and Precedex IV Dose:: 12 mcg Patient Mental Status Patient Mental Status: Sedate with meaningful communication Nerve Block 1st Nerve Block: Laterality: Left Block Type: Femoral Ultrasound Image Saved?: Yes Needle / Catheter Used: 100mm SonoPlex II Local Anesthetic Bolus (Indicate Dose Given): Lidocaine used for local infiltration of skin, Bupivacaine 0.5% Dose:: 20 mL and Exparel Dose:: 10 mL Additives (Indicate Dose Given): None Ultrasound: Sterile probe cover and gel used Nerve Stimulator: Supplement to Ultrasound use and No twitch or parasthesia noted < 0.5 mA Paresthesia: None Procedure Tolerated: No Complications Procedure Outcome: Successful Performed By: Eloy Villar
[2023-07-18] MEDS: EPINEPHrine 10 MG/10 ML ML (14:45)
[2023-07-18] MEDS: Bupivacaine 0.25% Pres-Free W/EPI 30 ML VIAL (14:45)
[2023-07-18] MEDS: Lactated Ringers 1,000 ML 30 ML IV (15:02)
--- NOTE | 2023-07-18 15:53 | ANES.POST_ITS ---
Postoperative Evaluation Date, Time and Location Date Performed: 07/18/23 Time Performed: 15:54 Patient Location: PACU Vital Signs Most Recent Imported Vital Signs: Most Recent Vital Signs Temp Pulse Resp BP Pulse Ox 36.8 C 68 16 107/63 96 07/18/23 15:41 07/18/23 15:41 07/18/23 15:41 07/18/23 15:41 07/18/23 15:41 Pain Score Most Recent Pain Score: Most Recent Pain Score Pain Level 8 07/18/23 14:10 Temp Pulse Resp BP Pulse Ox 36.8 C 68 16 107/63 96 07/18/23 15:41 07/18/23 15:41 07/18/23 15:41 07/18/23 15:41 07/18/23 15:41 Assessment Mental Status: Awake (Alert & Oriented to Patient Baseline) Airway and Respiratory Function: Patent airway with normal (patient baseline) respiratory exam Cardiovascular Function: Hemodynamically Stable Hydration Status: Adequately Hydrated Nausea & Vomiting: No Nausea or Vomiting Pain: Pain is tolerable per patient (pain level 2/10) Peripheral Nerve Block: Regional nerve block not resolved at time of post operat vee discharge
== END 2023-07-18 17:08 | disposition home or self-care (01) ==
LOC: SUR 11:21
PROVIDERS: Nurse Anesthetist, Certified Registered; Visit Provider Student in an Organized Health Care Education/Training Program
PROC: (CPT 29870; principal; 2023-07-18 13:30)
PROC: (CPT 27570; 2023-07-18 13:30)
DX: M25.662 Stiffness of left knee, not elsewhere classified (principal); S80.852A Superficial foreign body, left lower leg, initial encounter; S86.812A Strain of other muscle(s) and tendon(s) at lower leg level, left leg, initial encounter; S82.012A Displaced osteochondral fracture of left patella, initial encounter for closed fracture; X58.XXXA Exposure to other specified factors, initial encounter
CPT/HCPCS: 29884; 20680; 36415; 76942; 85027; C9290; J0665; J0690; J1100; J1885; J2250; J2270; J2405

== ENCOUNTER 2023-10-25 19:15 | Emergency (ER) | payer MEDICAID, SELFPAY ==
[2023-10-25 19:16] VITALS: BP 124/81; PULSE 101; RESP 15; TEMP 38.6; O2SAT 97
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
[2023-10-25] MEDS: Ibuprofen 400 MG TAB PO (19:44)
== END 2023-10-25 19:44 | disposition home or self-care (01) ==
PROVIDERS: Emergency Provider Emergency Medicine
DX: U07.1 COVID-19 (principal); R50.9 Fever, unspecified; R53.83 Other fatigue; R52 Pain, unspecified
CPT/HCPCS: 99282; 99283

== ENCOUNTER → 2023-11-11 13:46 | Emergency (ER) | payer MEDICAID, SELFPAY ==
[2023-11-11 13:47] VITALS: BP 139/92; PULSE 83; RESP 10; TEMP 36.4; O2SAT 97
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
[2023-11-11] MEDS: Amox. 875/Clav. 125, 2 TABS/BTL 1 TAB PO ×3 (14:18→14:19)
[2023-11-11] MEDS: Gabapentin 300 MG CAP PO (14:22)
== END | disposition home or self-care (01) ==
LOC: ER 14:08 → RED 14:24
PROVIDERS: Emergency Provider Emergency Medicine
DX: R68.84 Jaw pain (principal); K08.89 Other specified disorders of teeth and supporting structures
CPT/HCPCS: 99283

== ENCOUNTER 2024-04-18 16:56 | Emergency (ER) | payer SELFPAY ==
[2024-04-18 17:00] VITALS: BP 136/93; PULSE 79; RESP 16; TEMP 36.9; O2SAT 98
--- NOTE | 2024-04-18 17:00 | DI.RAD_ITS ---
Exam(s) XR RIBS RT W PA LAT CHEST EXAM: XR RIBS RT W PA LAT CHEST CLINICAL HISTORY: right post rib pain TECHNIQUE: 2D digital imaging was performed. COMPARISON: No exams were available for comparison FINDINGS: Total 6 views: RIBS 4 VIEWS-RIGHT There are no obvious acute rib fractures evident. No lytic rib lesions identified. CXR- 2 VIEWS: No lung contusion or pneumothorax. There is no pleural effusion evident. Heart size is normal and there is no significant mediastinal widening. IMPRESSION: 1. No obvious right rib fractures evident. Also no significant rib lesions. 2. No ipsilateral lung nor pleural abnormality evident. No pneumothorax. Both lungs are clear. DATA REPOSITORY: RADIATION DOSE DELIVERED:
[2024-04-18] MEDS: Acetaminophen 500 MG TAB 1000 MG PO (17:18)
[2024-04-18] MEDS: Methocarbamol 500 MG TAB 1000 MG PO (17:18)
[2024-04-18 17:19] LABS: Bilirubin Negative (Negative); Blood Negative (Negative); Clarity Clear (Clear); Glucose Negative (Negative); Ketones Negative (Negative); Leukocyte Esterase Negative (Negative); Nitrite Negative (Negative); Specific Gravity 1.025 (1.005-1.025); Urobilinogen 0.2 mg/dL (Up to 0.2); pH 5.5 (5-8)
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
[2024-04-18 18:12] VITALS: BP 139/90; PULSE 76; RESP 18; O2SAT 97
== END 2024-04-18 18:12 | disposition home or self-care (01) ==
PROVIDERS: Emergency Provider Emergency Medicine
DX: R07.81 Pleurodynia (principal); F17.210 Nicotine dependence, cigarettes, uncomplicated
CPT/HCPCS: 71046; 71100; 81003

== ENCOUNTER 2024-10-13 20:18 | Emergency (ER) | payer SELFPAY ==
[2024-10-13 20:21] VITALS: BP 130/89; PULSE 89; RESP 16; TEMP 36.6; O2SAT 99
[2024-10-13 20:30] VITALS: BP 130/89; PULSE 89; RESP 16; TEMP 36.6; O2SAT 99
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
[2024-10-13] MEDS: Amoxicillin 875/Clav. 125 TAB PO (21:30)
[2024-10-13] MEDS: Acetaminophen 500 MG TAB 1000 MG PO (21:30)
== END 2024-10-13 21:36 | disposition home or self-care (01) ==
PROVIDERS: Emergency Provider General Practice
DX: K04.7 Periapical abscess without sinus (principal); R20.0 Anesthesia of skin
CPT/HCPCS: 99283 ×2; 80048; 85025

== ENCOUNTER 2024-12-05 20:05 | Emergency (ER) | payer SELFPAY ==
[2024-12-05 20:12] VITALS: BP 121/82; PULSE 86; RESP 15; TEMP 37.4; O2SAT 98
[2024-12-05 20:19] VITALS: BP 121/82; PULSE 86; RESP 15; TEMP 37.4; O2SAT 95
[2024-12-05] MEDS: Clindamycin 150 MG CAP, 12 CAPS/BTL 450 MG PO (22:11)
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
== END 2024-12-05 22:13 | disposition home or self-care (01) ==
PROVIDERS: Emergency Provider Physician Assistant
DX: K04.7 Periapical abscess without sinus (principal); H61.22 Impacted cerumen, left ear
CPT/HCPCS: 99283 ×2